=== PATIENT | male | born 1995 | race Caucasian/White ===

== ENCOUNTER 2016-09-10 06:14 | Emergency (ER) | payer OTHER ==
[2016-09-10 06:29] VITALS: BP 149/60
[2016-09-10] MEDS ORDERED: Amoxicillin 500 MG Cap PO ONE (06:36)
--- NOTE | 2016-09-10 06:42 | EDM.PDOC ---
ED HPI GENERAL MEDICAL PROBLEM - General Chief Complaint: ENT Problem Stated Complaint: FEVER, SORE THROAT Time Seen by Provider: 09/10/16 06:33 - History of Present Illness INITIAL COMMENTS - FREE TEXT/NARRATIVE: recent sore throat and fever . Throat Pain Score (Numeric/FACES): 8 - Related Data Allergies Allergy/AdvReac Type Severity Reaction Status Date / Time No Known Allergies Allergy Verified 09/10/16 06:29 Home Meds: Home Meds . [No Known Home Meds] 09/10/16 [History] ED ROS ENT - Review of Systems Review Of Systems: See Below Constitutional: Reports: Other (pain with swallowing. pain with talking) ED EXAM, ENT - Physical Exam Exam: See Below Text/Narrative:: alert neck suuple lungs CTA speech normal posterior pharynx/uvula red and inflamed. Course - Vital Signs Last Recorded V/S: Last Vital Signs Temp 96.6 F 09/10/16 06:19 Pulse 61 09/10/16 06:19 Resp 14 09/10/16 06:19 BP 149/60 H 09/10/16 06:19 Pulse Ox 95 09/10/16 06:19 - Orders/Labs/Meds Orders: Active Orders 24 hr Category Date Time Status STREP SCRN A RAPID W CULT CONF [RM] Stat Lab 09/10/16 06:27 Ordered Meds: Medications Discontinued Medications Generic Name Dose Route Start Last Admin Trade Name Frecaprice PRN Reason Stop Dose Admin Amoxicillin 500 mg 09/10/16 06:36 Amoxil PO 09/10/16 06:37 ONETIME ONE Departure - Departure Time of Disposition: 06:41 Disposition: Eloped 07 Condition: good Clinical Impression: Uvulitis, Pharyngitis - Discharge Information Forms: ED Department Discharge Additional Instructions: off work unti Stur amoxil 500 mg tid x ten days percocet 10/325 q4 hr prn #16 advised re habit forming, sedating and constipating recheck as needed - My Orders Last 24 Hours: My Active Orders 09/10/16 06:27 STREP SCRN A RAPID W CULT CONF [RM] Stat - Assessment/Plan Last 24 Hours: My Active Orders 09/10/16 06:27 STREP SCRN A RAPID W CULT CONF [RM] Stat
== END 2016-09-10 06:46 | disposition home or self-care (01) ==
LOC: MW.ED 06:14
DX: K12.2 Cellulitis and abscess of mouth (principal); J02.9 Acute pharyngitis, unspecified
CPT/HCPCS: 87880; 99283; A9270

== ENCOUNTER 2016-09-23 16:20 | Observation (INO) | payer OTHER ==
[2016-09-23] MEDS ORDERED: Sodium Chloride 0.9% 10 ML Syringe FLUSH PRN (16:36)
[2016-09-23] MEDS ORDERED: Sodium Chloride 0.9% 2.5 ML Syringe FLUSH PRN (16:36)
[2016-09-23] MEDS ORDERED: Ampicillin/Sulbactam Na 3 GM in Sodium Chloride 0.9% 100 ML IV ONE (16:36)
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
[2016-09-23] MEDS ORDERED: Sodium Chloride 0.9% 1,000 ML IV SCH (16:45)
[2016-09-23 17:23] LABS: CHLORIDE,CL 106 mmol/L (98-110); SODIUM,NA 141 mmol/L (136-146)
[2016-09-23] MEDS ORDERED: oxyCODONE 5 MG Tab PO PRN (17:33)
[2016-09-23] MEDS ORDERED: Acetaminophen 325 MG Tab PO PRN (17:33)
[2016-09-23] MEDS ORDERED: metroNIDAZOLE/Normal Saline 500 MG in Premix Bag 1 BAG IV SCH (18:00)
[2016-09-23] MEDS: Piperacillin/Tazobactam 4.5 GM in Sodium Chloride 0.9% 100 ML IV SCH (19:20)
[2016-09-23] MEDS: Sodium Chloride 0.9% 1,000 ML IV SCH (19:26)
[2016-09-23] MEDS: metroNIDAZOLE/Normal Saline 500 MG in Premix Bag 1 BAG IV SCH (20:27)
[2016-09-24] MEDS: Piperacillin/Tazobactam 4.5 GM in Sodium Chloride 0.9% 100 ML IV SCH ×3 (00:03→12:09)
[2016-09-24] MEDS: metroNIDAZOLE/Normal Saline 500 MG in Premix Bag 1 BAG IV SCH ×3 (01:18→13:07)
[2016-09-24 05:12] LABS: CHLORIDE,CL 109 mmol/L (98-110); SODIUM,NA 140 mmol/L (136-146)
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
[2016-09-24] MEDS: Sodium Chloride 0.9% 1,000 ML IV SCH (08:34)
[2016-09-24] MEDS ORDERED: Nicotine 14 MG/24 Hr Patch TRDERM SCH (09:00)
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
[2016-09-24 15:59] VITALS: BP 109/57
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
== END 2016-09-24 17:30 | disposition home or self-care (01) ==
LOC: MW.ED 16:20 → MW.MS 17:33
PROVIDERS: ADMIT Internal Medicine; ATTEND Internal Medicine
DX: L03.011 Cellulitis of right finger (principal); S61.451D Open bite of right hand, subsequent encounter; W50.3XXD Accidental bite by another person, subsequent encounter; K58.9 Irritable bowel syndrome, unspecified; Z90.89 Acquired absence of other organs
CPT/HCPCS: 36415; 73120; 80048; 80053; 85025; 87040; 96361; 96365; 99284; A9270; J0295; J2543; J7030; J7040; 96366; 96367; 99285; G0378

== ENCOUNTER 2018-11-17 10:41 | Observation (INO) | payer OTHER ==
[2018-11-17] MEDS ORDERED: Sodium Chloride 0.9% 2.5 ML Syringe FLUSH PRN (10:54)
[2018-11-17] MEDS ORDERED: Sodium Chloride 0.9% 10 ML Syringe FLUSH PRN (10:54)
[2018-11-17] MEDS ORDERED: Sodium Chloride 0.9% 1,000 ML IV ONE ×2 (10:54→12:40)
--- NOTE | 2018-11-17 10:59 | EDM.PDOC ---
ED HPI GENERAL MEDICAL PROBLEM - General Chief Complaint: Headache Stated Complaint: HEADACHE BODY ACHES CHILLS Time Seen by Provider: 11/17/18 10:56 - History of Present Illness INITIAL COMMENTS - FREE TEXT/NARRATIVE: 23 y/o male here for nausea, vomiting, fevers and body aches. States that he started feeling warm with chills last night. Body aches. Some nausea and vomiting x 1. States his whole body hurts. Sensitive to light. States he is up to date with immunizations. No cough, chest pain, dyspnea, abdominal pain, dysuria. Endorses Diarrhea for past few days. No blood in stool. Has been taking pedialyte. Has tried tylenol/ibuprofen with minimal improvement. Denies illicit drug use. He last drank over the weekend approximately 8 beers. no history of withdrawal seizures. headache Pain Score (Numeric/FACES): 9 bodyaches Pain Score (Numeric/FACES): 9 - Related Data Allergies Allergy/AdvReac Type Severity Reaction Status Date / Time No Known Allergies Allergy Verified 11/17/18 16:09 Home Meds: Home Meds . [No Known Home Meds] 02/16/18 [History] Past Medical History - Past Health History Medical/Surgical History: Denies Medical/Surgical History HEENT History: Reports: None Cardiovascular History: Reports: None Respiratory History: Reports: None Gastrointestinal History: Reports: Irritable Bowel Syndrome Genitourinary History: Reports: None Musculoskeletal History: Reports: Other (See Below) Other Musculoskeletal History: Fracture "both shoulders," both wrists Neurological History: Reports: None Psychiatric History: Reports: None Endocrine/Metabolic History: Reports: None Hematologic History: Reports: None Immunologic History: Reports: None Oncologic (Cancer) History: Reports: None Dermatologic History: Reports: None - Infectious Disease History Infectious Disease History: Reports: None - Past Surgical History Head Surgeries/Procedures: Reports: None HEENT Surgical History: Reports: Tonsillectomy Cardiovascular Surgical History: Reports: None Respiratory Surgical History: Reports: None GI Surgical History: Reports: None Male Surgical History: Reports: None Endocrine Surgical History: Reports: None Neurological Surgical History: Reports: None Musculoskeletal Surgical History: Reports: None Oncologic Surgical History: Reports: None Dermatological Surgical History: Reports: None Social & Family History - Family History Family Medical History: Noncontributory Cardiac: Reports: Hypertension, [place] Neurological: Reports: CVA Other Neurological Family History: father Endocrine/Metabolic: Reports: Diabetes, type II - Tobacco Use Smoking Status *Q: Never Smoker Second Hand Smoke Exposure: No - Caffeine Use Caffeine Use: Reports: Coffee Caffeine Use Comment: 1 daily - Recreational Drug Use Recreational Drug Use: No - Living Situation & Occupation Living situation: Reports: Single Occupation: Employed ED ROS GENERAL - Review of Systems Review Of Systems: ROS reveals no pertinent complaints other than HPI. ED EXAM, GI/ABD - Physical Exam Exam: See Below General Appearance: Alert, Anxious Respiratory/Chest: No Respiratory Distress, Lungs Clear Cardiovascular: Normal Peripheral Pulses, Regular Rate, Rhythm GI/Abdominal Exam: Normal Bowel Sounds, Soft, Non-Tender, No Distention Back Exam: Normal Inspection. No: CVA Tenderness (L), CVA Tenderness (R) Extremities: Normal Inspection, No Pedal Edema Neurological: Alert, Oriented, CN II-XII Intact Skin Exam: Warm, No Rash Course - Vital Signs Text/Narrative:: LP performed by Dr. Crenshaw. Studies sent for analysis. Started patient on ceftriaxone and acyclovir IV due to suspected viral meningitis. Discussed case with Dr. Deleon who has accepted the patient. Last Recorded V/S: Last Vital Signs Temp 38.0 C 11/17/18 20:43 Pulse 68 11/17/18 19:19 Resp 18 11/17/18 19:19 BP 138/69 11/17/18 19:19 Pulse Ox 97 11/17/18 19:19 - Orders/Labs/Meds Orders: Active Orders 24 hr Category Date Time Status Admission Status [Patient Status] [ADT] Stat ADT 11/17/18 14:17 Active CULTURE BLOOD [BC] Stat Lab 11/17/18 11:08 Received CULTURE BLOOD [BC] Stat Lab 11/17/18 14:13 Received CULTURE CSF + SMEAR [RM] Stat Lab 11/17/18 13:15 Results CULTURE FUNGUS [MREF] Stat Lab 11/17/18 13:15 Received CULTURE STREP A CONFIRMATION [RM] Stat Lab 11/17/18 11:05 Results STREP SCRN A RAPID W CULT CONF [RM] Stat Lab 11/17/18 11:05 Results Sodium Chloride 0.9% [Saline Flush] Med 11/17/18 10:54 Active 10 ml FLUSH ASDIRECTED PRN Sodium Chloride 0.9% [Saline Flush] Med 11/17/18 10:54 Active 2.5 ml FLUSH ASDIRECTED PRN Blood Culture x2 Reflex Set [OM.PC] Stat Ot 11/17/18 14:05 Ordered Saline Lock Insert [OM.PC] Stat Ot 11/17/18 10:54 Ordered Medication Orders Acetaminophen (Tylenol) 650 mg PO Q4H PRN PRN Reason: Pain (Mild 1-3)/fever Last Admin: 11/17/18 18:56 Dose: 650 mg Sodium Chloride (Normal Saline) 1,000 mls @ 150 mls/hr IV Q7H [facility] Last Admin: 11/17/18 16:48 Dose: 150 mls/hr Ceftriaxone Sodium/Dextrose 2 (gm/ Premix) 50 mls @ 100 mls/hr IV Q12H [facility] Acyclovir 800 mg/ Sodium (Chloride) 166 mls @ 166 mls/hr IV Q8H [facility] Last Admin: 11/17/18 20:45 Dose: 166 mls/hr Vancomycin HCl 1.25 gm/ Sodium (Chloride) 250 mls @ 166.667 mls/hr IV Q8H [facility] Last Admin: 11/17/18 17:17 Dose: 166.667 mls/hr Morphine Sulfate (Morphine) 3 mg IVPUSH Q2H PRN PRN Reason: Pain (severe 7-10) Last Admin: 11/17/18 19:48 Dose: 3 mg Admin: 11/17/18 17:40 Dose: 3 mg Ondansetron HCl (Zofran) 4 mg IVPUSH Q4H PRN PRN Reason: Nausea Last Admin: 11/17/18 19:47 Dose: 4 mg Promethazine HCl (Phenergan) 25 mg PO Q6H PRN PRN Reason: Nausea/Vomiting Sodium Chloride (Saline Flush) 10 ml FLUSH ASDIRECTED PRN PRN Reason: Keep Vein Open Last Admin: 11/17/18 11:01 Dose: 10 ml Sodium Chloride (Saline Flush) 2.5 ml FLUSH ASDIRECTED PRN PRN Reason: Keep Vein Open Last Admin: 11/17/18 11:01 Dose: 2.5 ml Vancomycin HCl (Pharmacy To Dose - Vancomycin) 1 dose .XX ASDIRECTED [facility] Labs: Laboratory Tests 07/25/19 07/25/19 07/25/19 Range/Units 11:00 11:00 11:00 WBC 6.62 (4.0-11.0) K/uL RBC 5.14 (4.50-5.90) M/uL Hgb 15.7 (13.0-17.0) g/dL Hct 46.7 (38.0-50.0) % MCV 90.9 (80.0-98.0) fL MCH 30.5 (27.0-32.0) pg MCHC 33.6 (31.0-37.0) g/dL RDW Std Deviation 43.2 (28.0-62.0) fl RDW Coeff of Kristofer 13 (11.0-15.0) % Plt Count 150 (150-400) K/uL MPV 9.90 (7.40-12.00) fL Neut % (Auto) 65.0 (48.0-80.0) % Lymph % (Auto) 26.0 (16.0-40.0) % [place] % (Auto) 8.5 (0.0-15.0) % Eos % (Auto) 0.3 (0.0-7.0) % Baso % (Auto) 0.2 (0.0-1.5) % Neut # (Auto) 4.3 (1.4-5.7) K/uL Lymph # (Auto) 1.7 (0.6-2.4) K/uL [place] # (Auto) 0.6 (0.0-0.8) K/uL Eos # (Auto) 0.0 (0.0-0.7) K/uL Baso # (Auto) 0.0 (0.0-0.1) K/uL Nucleated RBC % 0.0 /100WBC Nucleated RBCs # 0 K/uL Sodium 138 (136-148) mmol/L Potassium 3.7 (3.5-5.1) mmol/L Chloride 102 (98-107) mmol/L Carbon Dioxide 24.1 (21.0-32.0) mmol/L BUN 12 (7.0-18.0) mg/dL Creatinine 1.3 (0.8-1.3) mg/dL Est Cr Clr Drug Dosing 93.32 mL/min Estimated GFR (MDRD) > 60.0 ml/min Glucose 94 (74-106) mg/dL Calcium 9.1 (8.5-10.1) mg/dL Total Bilirubin 0.8 (0.2-1.0) mg/dL AST 14 L (15-37) IU/L ALT 16 (14-63) IU/L Alkaline Phosphatase 61 (46-116) U/L Total Protein 7.8 (6.4-8.2) g/dL Albumin 4.4 (3.4-5.0) g/dL Globulin 3.4 (2.6-4.0) g/dL Albumin/Globulin Ratio 1.3 (0.9-1.6) TSH 3rd Generation 0.60 (0.36-3.74) uIU/mL Urine Color Urine Appearance Urine pH (5.0-8.0) Ur Specific [place] (1.001-1.035) Urine Protein (NEGATIVE) mg/dL Urine Glucose (UA) (NEGATIVE) mg/dL Urine Ketones (NEGATIVE) mg/dL Urine Occult Blood (NEGATIVE) Urine Nitrite (NEGATIVE) Urine Bilirubin (NEGATIVE) Urine Urobilinogen (<2.0) EU/dL Ur Leukocyte Esterase (NEGATIVE) CSF Appearance CSF Color CSF WBC (0-0.005) K/uL CSF RBC (0.0-0.0) M/uL CSF Mononuclear Cells % CSF Polymorphonuclear % CSF Glucose (40-70) mg/dL CSF Total Protein (15-45) mg/dL Urine Opiates Screen (NEGATIVE) Ur Oxycodone Screen (NEGATIVE) Urine Methadone Screen (NEGATIVE) Ur Barbiturates Screen (NEGATIVE) Ur Phencyclidine Scrn (NEGATIVE) Ur Amphetamine Screen (NEGATIVE) U Methamphetamines Scrn (NEGATIVE) U Benzodiazepines Scrn (NEGATIVE) U Cocaine Metab Screen (NEGATIVE) U Marijuana (THC) Screen (NEGATIVE) Ethyl Alcohol < 3.0 mg/dL HIV 1&2 Ag/Ab, 4th Gen 0.3 (<1.0) INDEX 11/17/18 11/17/18 11/17/18 Range/Units 11:05 11:05 13:15 WBC (4.0-11.0) K/uL RBC (4.50-5.90) M/uL Hgb (13.0-17.0) g/dL Hct (38.0-50.0) % MCV (80.0-98.0) fL MCH (27.0-32.0) pg MCHC (31.0-37.0) g/dL RDW Std Deviation (28.0-62.0) fl RDW Coeff of Kristofer (11.0-15.0) % Plt Count (150-400) K/uL MPV (7.40-12.00) fL Neut % (Auto) (48.0-80.0) % Lymph % (Auto) (16.0-40.0) % [place] % (Auto) (0.0-15.0) % Eos % (Auto) (0.0-7.0) % Baso % (Auto) (0.0-1.5) % Neut # (Auto) (1.4-5.7) K/uL Lymph # (Auto) (0.6-2.4) K/uL [place] # (Auto) (0.0-0.8) K/uL Eos # (Auto) (0.0-0.7) K/uL Baso # (Auto) (0.0-0.1) K/uL Nucleated RBC % /100WBC Nucleated RBCs # K/uL Sodium (136-148) mmol/L Potassium (3.5-5.1) mmol/L Chloride (98-107) mmol/L Carbon Dioxide (21.0-32.0) mmol/L BUN (7.0-18.0) mg/dL Creatinine (0.8-1.3) mg/dL Est Cr Clr Drug Dosing mL/min Estimated GFR (MDRD) ml/min Glucose (74-106) mg/dL Calcium (8.5-10.1) mg/dL Total Bilirubin (0.2-1.0) mg/dL AST (15-37) IU/L ALT (14-63) IU/L Alkaline Phosphatase (46-116) U/L Total Protein (6.4-8.2) g/dL Albumin (3.4-5.0) g/dL Globulin (2.6-4.0) g/dL Albumin/Globulin Ratio (0.9-1.6) TSH 3rd Generation (0.36-3.74) uIU/mL Urine Color YELLOW Urine Appearance CLEAR Urine pH 7.0 (5.0-8.0) Ur Specific [place] 1.020 (1.001-1.035) Urine Protein NEGATIVE (NEGATIVE) mg/dL Urine Glucose (UA) NEGATIVE (NEGATIVE) mg/dL Urine Ketones 40 H (NEGATIVE) mg/dL Urine Occult Blood NEGATIVE (NEGATIVE) Urine Nitrite NEGATIVE (NEGATIVE) Urine Bilirubin NEGATIVE (NEGATIVE) Urine Urobilinogen 0.2 (<2.0) EU/dL Ur Leukocyte Esterase NEGATIVE (NEGATIVE) CSF Appearance CLEAR CSF Color COLORLESS CSF WBC 0.097 H (0-0.005) K/uL CSF RBC 0.000 (0.0-0.0) M/uL CSF Mononuclear Cells 93.8 % CSF Polymorphonuclear 6.2 % CSF Glucose (40-70) mg/dL CSF Total Protein (15-45) mg/dL Urine Opiates Screen NEGATIVE (NEGATIVE) Ur Oxycodone Screen NEGATIVE (NEGATIVE) Urine Methadone Screen NEGATIVE (NEGATIVE) Ur Barbiturates Screen NEGATIVE (NEGATIVE) Ur Phencyclidine Scrn NEGATIVE (NEGATIVE) Ur Amphetamine Screen NEGATIVE (NEGATIVE) U Methamphetamines Scrn NEGATIVE (NEGATIVE) U Benzodiazepines Scrn NEGATIVE (NEGATIVE) U Cocaine Metab Screen NEGATIVE (NEGATIVE) U Marijuana (THC) Screen NEGATIVE (NEGATIVE) Ethyl Alcohol mg/dL HIV 1&2 Ag/Ab, 4th Gen (<1.0) INDEX 11/17/18 Range/Units 13:15 WBC (4.0-11.0) K/uL RBC (4.50-5.90) M/uL Hgb (13.0-17.0) g/dL Hct (38.0-50.0) % MCV (80.0-98.0) fL MCH (27.0-32.0) pg MCHC (31.0-37.0) g/dL RDW Std Deviation (28.0-62.0) fl RDW Coeff of Kristofer (11.0-15.0) % Plt Count (150-400) K/uL MPV (7.40-12.00) fL Neut % (Auto) (48.0-80.0) % Lymph % (Auto) (16.0-40.0) % [place] % (Auto) (0.0-15.0) % Eos % (Auto) (0.0-7.0) % Baso % (Auto) (0.0-1.5) % Neut # (Auto) (1.4-5.7) K/uL Lymph # (Auto) (0.6-2.4) K/uL [place] # (Auto) (0.0-0.8) K/uL Eos # (Auto) (0.0-0.7) K/uL Baso # (Auto) (0.0-0.1) K/uL Nucleated RBC % /100WBC Nucleated RBCs # K/uL Sodium (136-148) mmol/L Potassium (3.5-5.1) mmol/L Chloride (98-107) mmol/L Carbon Dioxide (21.0-32.0) mmol/L BUN (7.0-18.0) mg/dL Creatinine (0.8-1.3) mg/dL Est Cr Clr Drug Dosing mL/min Estimated GFR (MDRD) ml/min Glucose (74-106) mg/dL Calcium (8.5-10.1) mg/dL Total Bilirubin (0.2-1.0) mg/dL AST (15-37) IU/L ALT (14-63) IU/L Alkaline Phosphatase (46-116) U/L Total Protein (6.4-8.2) g/dL Albumin (3.4-5.0) g/dL Globulin (2.6-4.0) g/dL Albumin/Globulin Ratio (0.9-1.6) TSH 3rd Generation (0.36-3.74) uIU/mL Urine Color Urine Appearance Urine pH (5.0-8.0) Ur Specific [place] (1.001-1.035) Urine Protein (NEGATIVE) mg/dL Urine Glucose (UA) (NEGATIVE) mg/dL Urine Ketones (NEGATIVE) mg/dL Urine Occult Blood (NEGATIVE) Urine Nitrite (NEGATIVE) Urine Bilirubin (NEGATIVE) Urine Urobilinogen (<2.0) EU/dL Ur Leukocyte Esterase (NEGATIVE) CSF Appearance CSF Color CSF WBC (0-0.005) K/uL CSF RBC (0.0-0.0) M/uL CSF Mononuclear Cells % CSF Polymorphonuclear % CSF Glucose 52.0 (40-70) mg/dL CSF Total Protein 87 H (15-45) mg/dL Urine Opiates Screen (NEGATIVE) Ur Oxycodone Screen (NEGATIVE) Urine Methadone Screen (NEGATIVE) Ur Barbiturates Screen (NEGATIVE) Ur Phencyclidine Scrn (NEGATIVE) Ur Amphetamine Screen (NEGATIVE) U Methamphetamines Scrn (NEGATIVE) U Benzodiazepines Scrn (NEGATIVE) U Cocaine Metab Screen (NEGATIVE) U Marijuana (THC) Screen (NEGATIVE) Ethyl Alcohol mg/dL HIV 1&2 Ag/Ab, 4th Gen (<1.0) INDEX Meds: Medications Generic Name Dose Route Start Last Admin Trade Name Freq PRN Reason Stop Dose Admin Acetaminophen 650 mg 11/17/18 15:19 11/17/18 18:56 Tylenol PO 650 mg Q4H PRN Administration Pain (Mild 1-3)/fever Sodium Chloride 1,000 mls @ 150 mls/hr 11/17/18 15:30 11/17/18 16:48 Normal Saline IV 150 mls/hr Q7H [facility] Administration Ceftriaxone Sodium/Dextrose 2 50 mls @ 100 mls/hr 11/18/18 01:00 gm/ Premix IV Q12H [facility] Acyclovir 800 mg/ Sodium 166 mls @ 166 mls/hr 11/17/18 21:30 11/17/18 20:45 Chloride IV 166 mls/hr Q8H [facility] Administration Vancomycin HCl 1.25 gm/ Sodium 250 mls @ 166.667 mls/hr 11/17/18 16:30 17:17 Chloride IV 166.667 mls/hr Q8H [facility] Administration Morphine Sulfate 3 mg 11/17/18 15:19 11/17/18 19:48 Morphine IVPUSH 3 mg Q2H PRN Administration Pain (severe 7-10) Ondansetron HCl 4 mg 11/17/18 15:21 11/17/18 19:47 Zofran IVPUSH 4 mg Q4H PRN Administration Nausea Promethazine HCl 25 mg 11/17/18 20:24 Phenergan PO Q6H PRN Nausea/Vomiting Sodium Chloride 10 ml 11/17/18 10:54 11/17/18 11:01 Saline Flush FLUSH 10 ml ASDIRECTED PRN Administration Keep Vein Open Sodium Chloride 2.5 ml 11/17/18 10:54 11/17/18 11:01 Saline Flush FLUSH 2.5 ml ASDIRECTED PRN Administration Keep Vein Open Vancomycin HCl 1 dose 11/17/18 15:30 Pharmacy To Dose - Vancomycin .XX ASDIRECTED [facility] Discontinued Medications Generic Name Dose Route Start Last Admin Trade Name Freq PRRuel Reason Stop Dose Admin Acetaminophen 1,000 mg 11/17/18 11:22 11/17/18 11:33 Tylenol PO 11/17/18 11:23 Not Given NOW ONE Acetaminophen 1,000 mg 11/17/18 11:31 11/17/18 11:38 Tylenol Extra Strength PO 11/17/18 11:32 1,000 mg ONETIME ONE Administration Acetaminophen 650 mg 11/17/18 20:24 11/17/18 20:43 Tylenol PO 11/17/18 20:25 650 mg NOW ONE Administration Hydromorphone HCl 1 mg 11/17/18 13:27 11/17/18 13:34 Dilaudid IVPUSH 11/17/18 13:28 1 mg ONETIME ONE Administration Sodium Chloride 1,000 mls @ 999 mls/hr 11/17/18 10:54 11/17/18 11:01 Normal Saline IV 11/17/18 11:54 999 mls/hr STAT ONE Administration Sodium Chloride 1,000 mls @ 999 mls/hr 11/17/18 12:40 11/17/18 12:58 Normal Saline IV 11/17/18 13:40 999 mls/hr STAT ONE Administration Ceftriaxone Sodium/Dextrose 2 50 mls @ 100 mls/hr 11/17/18 12:50 11/17/18 12: 58 gm/ Premix IV 11/17/18 13:19 100 mls/hr ONETIME ONE Administration Acyclovir 800 mg/ Sodium 66 mls @ 50 mls/hr 11/17/18 13:01 11/17/18 13:35 Chloride IV 11/17/18 14:20 Not Given ONETIME ONE Acyclovir 800 mg/ Sodium 166 mls @ 166 mls/hr 11/17/18 13:15 11/17/18 13:32 Chloride IV 11/17/18 14:14 166 mls/hr ONETIME ONE Administration Ketorolac Tromethamine 60 mg 11/17/18 12:13 11/17/18 12:35 Toradol IM 11/17/18 12:14 Not Given ONETIME ONE Ketorolac Tromethamine 30 mg 11/17/18 12:24 11/17/18 12:33 Toradol IVPUSH 11/17/18 12:25 30 mg ONETIME ONE Administration Ondansetron HCl 4 mg 11/17/18 13:27 11/17/18 13:34 Zofran IVPUSH 11/17/18 13:28 4 mg ONETIME ONE Administration Departure - Departure Time of Disposition: 14:00 Disposition: Refer to Observation Clinical Impression: Meningitis - Discharge Information *PRESCRIPTION DRUG MONITORING PROGRAM REVIEWED*: Not Applicable *COPY OF PRESCRIPTION DRUG MONITORING REPORT IN PATIENT JASON: Not Applicable - My Orders Last 24 Hours: My Active Orders 11/17/18 10:54 Sodium Chloride 0.9% [Saline Flush] 10 ml FLUSH ASDIRECTED PRN Sodium Chloride 0.9% [Saline Flush] 2.5 ml FLUSH ASDIRECTED PRN Saline Lock Insert [OM.PC] Stat 11/17/18 11:05 CULTURE STREP A CONFIRMATION [RM] Stat STREP SCRN A RAPID W CULT CONF [RM] Stat 11/17/18 11:08 CULTURE BLOOD [BC] Stat 11/17/18 13:15 CULTURE CSF + SMEAR [RM] Stat CULTURE FUNGUS [MREF] Stat 11/17/18 14:05 Blood Culture x2 Reflex Set [OM.PC] Stat 11/17/18 14:13 CULTURE BLOOD [BC] Stat 11/17/18 14:17 Admission Status [Patient Status] [ADT] Stat - Assessment/Plan Last 24 Hours: My Active Orders 11/17/18 10:54 Sodium Chloride 0.9% [Saline Flush] 10 ml FLUSH ASDIRECTED PRN Sodium Chloride 0.9% [Saline Flush] 2.5 ml FLUSH ASDIRECTED PRN Saline Lock Insert [OM.PC] Stat 11/17/18 11:05 CULTURE STREP A CONFIRMATION [RM] Stat STREP SCRN A RAPID W CULT CONF [RM] Stat 11/17/18 11:08 CULTURE BLOOD [BC] Stat 11/17/18 13:15 CULTURE CSF + SMEAR [RM] Stat CULTURE FUNGUS [MREF] Stat 11/17/18 14:05 Blood Culture x2 Reflex Set [OM.PC] Stat 11/17/18 14:13 CULTURE BLOOD [BC] Stat 11/17/18 14:17 Admission Status [Patient Status] [ADT] Stat
[2018-11-17] MEDS ORDERED: Acetaminophen 325 MG Tab PO ONE ×2 (11:22→20:24)
[2018-11-17] MEDS ORDERED: Acetaminophen 500 MG Tab PO ONE (11:31)
[2018-11-17 11:53] LABS: CHLORIDE,CL 102 mmol/L (98-107); SODIUM,NA 138 mmol/L (136-148)
[2018-11-17] MEDS ORDERED: Ketorolac 60 MG/2 ML SDV IM ONE (12:13)
[2018-11-17] MEDS ORDERED: Ketorolac 30 MG/ML SDV IVPUSH ONE (12:24)
[2018-11-17] MEDS ORDERED: cefTRIAXone 2 GM in Premix Bag 1 BAG IV ONE (12:50)
[2018-11-17] MEDS ORDERED: Acyclovir 500 MG/10 ML SDV IV SCH ×2 (13:00→21:30)
[2018-11-17] MEDS ORDERED: Acyclovir 500 MG/10 ML SDV IV ONE (13:00)
[2018-11-17] MEDS ORDERED: ACYCLOVIR IV ONE ×3 (13:01→13:15)
[2018-11-17] MEDS ORDERED: SODIUM CHLORIDE 0.9% IV ONE ×3 (13:01→13:15)
--- NOTE | 2018-11-17 13:25 | PCM.PRNOTE ---
- Free Text/Narrative Note: Dr. Crenshaw performed lumbar puncture. Patient consent on file. Draped and cleansed area in usual sterile manner. Lidocaine 1% injected for anesthesia. 10 CC aseptic CSF drained. Patient tolerated procedure well. No complications. CSF fluid sent for analysis.
[2018-11-17] MEDS ORDERED: Ondansetron 4 MG/2 ML SDV IVPUSH ONE (13:27)
[2018-11-17] MEDS ORDERED: HYDROmorphone 1 MG/ML Syringe IVPUSH ONE (13:27)
--- NOTE | 2018-11-17 15:15 | PCM.HP ---
<Ursula Howell M - Last Filed: 11/17/18 15:32> H&P History of Present Illness - General Date of Service: 11/17/18 Admit Problem/Dx: Admission Diagnosis/Problem Admission Diagnosis/Problem Aseptic meningitis Source of Information: Patient History Limitations: Reports: No Limitations - History of Present Illness Initial Comments - Free Text/Narative: This 23 year old male, otherwise healthy, presented to the ED today with complaints of headache, body aches, and fevers. He reports he started feeling ill a few days ago, but last night it significantly worsened. He reports neck pain with headaches that have associated light sensitivity. He reports generalized malaise and body aches, with mild nausea, vomiting and diarrhea. He reports he is up to date on vaccines, but he asked him mom regarding meningitis vaccine and she reports he never received one. He reports he has been at the [facility] a lot with many mosquito bites, no ticks that he is aware of, and no exposure to rodents. He denies overt rashes or lesions on his skin any were. Feels some blistering/sores on his lips. No strong history of herpes simplex. Denies history of HIV and no recent unprotected sex and no history of genital herpes and no current lesion in genitals. He denies recreational drug use, and specifically no IV drug use. He denies chest pain or cough. No focal neurologic deficits. He reports when he started feeling sick a few days ago he started taking a few pills of Amoxicillin that he had left over from an illness. Last evening he started taking Motrin and Tylenol to help with pain, with no relief. In the ED labowrk essential WNL. CSF fluid clear, WBC 0.097, glucose 52, protein 87. Gram stain reveals no organism, culture pending. Strep negative, Influenza negative. BC obtained and pending. UA negative Tox screen negative. He was treated with Acyclovir, Rocephin and IVFs. He was also given Tylenol and Dilaudid for pain. He will be admitted with suspected viral meningitis. headache Pain Score (Numeric/FACES): 9 bodyaches Pain Score (Numeric/FACES): 9 - Related Data Allergies/Adverse Reactions: Allergies Allergy/AdvReac Type Severity Reaction Status Date / Time No Known Allergies Allergy Verified 11/17/18 16:09 Home Medications: Home Meds . [No Known Home Meds] 02/16/18 [History] Past Medical History - Past Health History Medical/Surgical History: Denies Medical/Surgical History HEENT History: Reports: None Cardiovascular History: Reports: None. Denies: CAD, High Cholesterol, [place] Respiratory History: Reports: None. Denies: Asthma Gastrointestinal History: Reports: Irritable Bowel Syndrome Genitourinary History: Reports: None Musculoskeletal History: Reports: Other (See Below) Other Musculoskeletal History: Fracture "both shoulders," both wrists Neurological History: Reports: None Psychiatric History: Reports: None Endocrine/Metabolic History: Reports: None. Denies: Diabetes, Type II, Obesity/ BMI 30+ Hematologic History: Reports: None Immunologic History: Reports: None Oncologic (Cancer) History: Reports: None Dermatologic History: Reports: None - Infectious Disease History Infectious Disease History: Reports: None - Past Surgical History Head Surgeries/Procedures: Reports: None HEENT Surgical History: Reports: Tonsillectomy Cardiovascular Surgical History: Reports: None Respiratory Surgical History: Reports: None GI Surgical History: Reports: None Male Surgical History: Reports: None Endocrine Surgical History: Reports: None Neurological Surgical History: Reports: None Musculoskeletal Surgical History: Reports: None Oncologic Surgical History: Reports: None Dermatological Surgical History: Reports: None Social & Family History - Family History Family Medical History: Noncontributory Cardiac: Reports: Hypertension, [place] Neurological: Reports: CVA Other Neurological Family History: father Endocrine/Metabolic: Reports: Diabetes, type II - Tobacco Use Smoking Status *Q: Never Smoker Second Hand Smoke Exposure: No - Caffeine Use Caffeine Use: Reports: Coffee Caffeine Use Comment: 1 daily - Recreational Drug Use Recreational Drug Use: No - Living Situation & Occupation Living situation: Reports: Single Occupation: Employed H&P Review of Systems - Review of Systems: Review Of Systems: See Below General: Reports: Fever, Chills, Malaise, Weakness HEENT: Reports: Headaches, Visual Changes (photophobia). Denies: Sinus Congestion, Sore Throat, Vertigo Pulmonary: Reports: No Symptoms. Denies: Shortness of Breath, Cough, Sputum Cardiovascular: Denies: No Symptoms, Chest Pain, Edema Gastrointestinal: Reports: Diarrhea, Nausea, Vomiting. Denies: Abdominal Pain Genitourinary: Reports: No Symptoms. Denies: Dysuria, Frequency, Burning Skin: Reports: No Symptoms. Denies: Rash, Erythema, Wound Psychiatric: Reports: No Symptoms Neurological: Reports: No Symptoms. Denies: Confusion, Numbness, Paresthesia, Weakness Hematologic/Lymphatic: Reports: No Symptoms Immunologic: Reports: No Symptoms Exam - Exam Exam: See Below - Vital Signs Vital Signs: Last Vital Signs Temp 99.4 F 11/17/18 13:39 Pulse 101 H 11/17/18 14:48 Resp 18 11/17/18 14:48 BP 135/62 11/17/18 14:48 Pulse Ox 98 11/17/18 14:48 Weight: 79.379 kg - Exam General: Alert, Oriented, Cooperative, Other (lights off in room, pillow case over eyes, flushed cheeks and lying flat on his back.) HEENT: Conjunctiva Clear, Mucosa Moist & [place], Posterior Pharynx Clear, Other ( slight blistering sores to oral labia crease R side) Neck: Other (nuchal rigidity noted). No: Lymphadenopathy Lungs: Clear to Auscultation, Normal Respiratory Effort Cardiovascular: Regular Rate, Regular Rhythm, Normal S1, Normal S2. No: Systolic Murmur GI/Abdominal Exam: Normal Bowel Sounds, Soft, Non-Tender Extremities: Normal Inspection, Normal Range of Motion, Non-Tender, No Pedal Edema Skin: Other (flushed cheeks and neck). No: Rash Neuro Extensive - Mental Status: Alert, Oriented x3 Neuro Extensive - Motor, Sensory, Reflexes: CN II-XII Intact Psychiatric: Alert, Normal Affect, Normal Mood - Patient Data Lab Results Last 24 hrs: Laboratory Results - last 24 hr 11/17/18 11/17/18 11/17/18 Range/Units 11:00 11:00 11:05 WBC 6.62 (4.0-11.0) K/uL RBC 5.14 (4.50-5.90) M/uL Hgb 15.7 (13.0-17.0) g/dL Hct 46.7 (38.0-50.0) % MCV 90.9 (80.0-98.0) fL MCH 30.5 (27.0-32.0) pg MCHC 33.6 (31.0-37.0) g/dL RDW Std Deviation 43.2 (28.0-62.0) fl RDW Coeff of Kristofer 13 (11.0-15.0) % Plt Count 150 (150-400) K/uL MPV 9.90 (7.40-12.00) fL Neut % (Auto) 65.0 (48.0-80.0) % Lymph % (Auto) 26.0 (16.0-40.0) % [place] % (Auto) 8.5 (0.0-15.0) % Eos % (Auto) 0.3 (0.0-7.0) % Baso % (Auto) 0.2 (0.0-1.5) % Neut # (Auto) 4.3 (1.4-5.7) K/uL Lymph # (Auto) 1.7 (0.6-2.4) K/uL [place] # (Auto) 0.6 (0.0-0.8) K/uL Eos # (Auto) 0.0 (0.0-0.7) K/uL Baso # (Auto) 0.0 (0.0-0.1) K/uL Nucleated RBC % 0.0 /100WBC Nucleated RBCs # 0 K/uL Sodium 138 (136-148) mmol/L Potassium 3.7 (3.5-5.1) mmol/L Chloride 102 (98-107) mmol/L Carbon Dioxide 24.1 (21.0-32.0) mmol/L BUN 12 (7.0-18.0) mg/dL Creatinine 1.3 (0.8-1.3) mg/dL Est Cr Clr Drug Dosing 93.32 mL/min Estimated GFR (MDRD) > 60.0 ml/min Glucose 94 (74-106) mg/dL Calcium 9.1 (8.5-10.1) mg/dL Total Bilirubin 0.8 (0.2-1.0) mg/dL AST 14 L (15-37) IU/L ALT 16 (14-63) IU/L Alkaline Phosphatase 61 (46-116) U/L Total Protein 7.8 (6.4-8.2) g/dL Albumin 4.4 (3.4-5.0) g/dL Globulin 3.4 (2.6-4.0) g/dL Albumin/Globulin Ratio 1.3 (0.9-1.6) TSH 3rd Generation 0.60 (0.36-3.74) uIU/mL Urine Color YELLOW Urine Appearance CLEAR Urine pH 7.0 (5.0-8.0) Ur Specific [place] 1.020 (1.001-1.035) Urine Protein NEGATIVE (NEGATIVE) mg/dL Urine Glucose (UA) NEGATIVE (NEGATIVE) mg/dL Urine Ketones 40 H (NEGATIVE) mg/dL Urine Occult Blood NEGATIVE (NEGATIVE) Urine Nitrite NEGATIVE (NEGATIVE) Urine Bilirubin NEGATIVE (NEGATIVE) Urine Urobilinogen 0.2 (<2.0) EU/dL Ur Leukocyte Esterase NEGATIVE (NEGATIVE) CSF Appearance CSF Color CSF WBC (0-0.005) K/uL CSF RBC (0.0-0.0) M/uL CSF Mononuclear Cells % CSF Polymorphonuclear % CSF Glucose (40-70) mg/dL CSF Total Protein (15-45) mg/dL Urine Opiates Screen (NEGATIVE) Ur Oxycodone Screen (NEGATIVE) Urine Methadone Screen (NEGATIVE) Ur Barbiturates Screen (NEGATIVE) Ur Phencyclidine Scrn (NEGATIVE) Ur Amphetamine Screen (NEGATIVE) U Methamphetamines Scrn (NEGATIVE) U Benzodiazepines Scrn (NEGATIVE) U Cocaine Metab Screen (NEGATIVE) U Marijuana (THC) Screen (NEGATIVE) Ethyl Alcohol < 3.0 mg/dL 11/17/18 11/17/18 11/17/18 Range/Units 11:05 13:15 13:15 WBC (4.0-11.0) K/uL RBC (4.50-5.90) M/uL Hgb (13.0-17.0) g/dL Hct (38.0-50.0) % MCV (80.0-98.0) fL MCH (27.0-32.0) pg MCHC (31.0-37.0) g/dL RDW Std Deviation (28.0-62.0) fl RDW Coeff of Kristofer (11.0-15.0) % Plt Count (150-400) K/uL MPV (7.40-12.00) fL Neut % (Auto) (48.0-80.0) % Lymph % (Auto) (16.0-40.0) % [place] % (Auto) (0.0-15.0) % Eos % (Auto) (0.0-7.0) % Baso % (Auto) (0.0-1.5) % Neut # (Auto) (1.4-5.7) K/uL Lymph # (Auto) (0.6-2.4) K/uL [place] # (Auto) (0.0-0.8) K/uL Eos # (Auto) (0.0-0.7) K/uL Baso # (Auto) (0.0-0.1) K/uL Nucleated RBC % /100WBC Nucleated RBCs # K/uL Sodium (136-148) mmol/L Potassium (3.5-5.1) mmol/L Chloride (98-107) mmol/L Carbon Dioxide (21.0-32.0) mmol/L BUN (7.0-18.0) mg/dL Creatinine (0.8-1.3) mg/dL Est Cr Clr Drug Dosing mL/min Estimated GFR (MDRD) ml/min Glucose (74-106) mg/dL Calcium (8.5-10.1) mg/dL Total Bilirubin (0.2-1.0) mg/dL AST (15-37) IU/L ALT (14-63) IU/L Alkaline Phosphatase (46-116) U/L Total Protein (6.4-8.2) g/dL Albumin (3.4-5.0) g/dL Globulin (2.6-4.0) g/dL Albumin/Globulin Ratio (0.9-1.6) TSH 3rd Generation (0.36-3.74) uIU/mL Urine Color Urine Appearance Urine pH (5.0-8.0) Ur Specific [place] (1.001-1.035) Urine Protein (NEGATIVE) mg/dL Urine Glucose (UA) (NEGATIVE) mg/dL Urine Ketones (NEGATIVE) mg/dL Urine Occult Blood (NEGATIVE) Urine Nitrite (NEGATIVE) Urine Bilirubin (NEGATIVE) Urine Urobilinogen (<2.0) EU/dL Ur Leukocyte Esterase (NEGATIVE) CSF Appearance CLEAR CSF Color COLORLESS CSF WBC 0.097 H (0-0.005) K/uL CSF RBC 0.000 (0.0-0.0) M/uL CSF Mononuclear Cells 93.8 % CSF Polymorphonuclear 6.2 % CSF Glucose 52.0 (40-70) mg/dL CSF Total Protein 87 H (15-45) mg/dL Urine Opiates Screen NEGATIVE (NEGATIVE) Ur Oxycodone Screen NEGATIVE (NEGATIVE) Urine Methadone Screen NEGATIVE (NEGATIVE) Ur Barbiturates Screen NEGATIVE (NEGATIVE) Ur Phencyclidine Scrn NEGATIVE (NEGATIVE) Ur Amphetamine Screen NEGATIVE (NEGATIVE) U Methamphetamines Scrn NEGATIVE (NEGATIVE) U Benzodiazepines Scrn NEGATIVE (NEGATIVE) U Cocaine Metab Screen NEGATIVE (NEGATIVE) U Marijuana (THC) Screen NEGATIVE (NEGATIVE) Ethyl Alcohol mg/dL Result Diagrams: 11/17/18 11:00 11/17/18 11:00 Kuldip Results Last 24 hrs: Microbiology 11/17/18 13:15 Gram Stain - Preliminary Cerebral Spinal Fluid 11/17/18 11:05 Influenza Type A Antigen Screen - Final Nasopharyngeal Swab NEGATIVE INFLUENZA A VIRUS AG REFERENCE RANGE: NEGATIVE Influenza Type B Antigen Screen - Final NEGATIVE INFLUENZA B VIRUS AG REFERENCE RANGE: NEGATIVE 11/17/18 11:05 Group A Streptococcus Rapid Screen - Final Throat NEGATIVE STREP A SCREEN REFERENCE RANGE: NEGATIVE - Problem List (1) Meningitis SNOMED Code(s): 68103712 ICD Code: A87.9 - VIRAL MENINGITIS, UNSPECIFIED Status: Acute Current Visit: Yes Problem List Initiated/Reviewed/Updated: Yes Orders Last 24hrs: Active Orders 24 hr Category Date Time Status Admission Status [Patient Status] [ADT] Stat ADT 11/17/18 14:17 Active CULTURE BLOOD [BC] Stat Lab 11/17/18 11:08 Received CULTURE BLOOD [BC] Stat Lab 11/17/18 14:13 Received CULTURE CSF + SMEAR [RM] Stat Lab 11/17/18 13:15 Results CULTURE FUNGUS [MREF] Stat Lab 11/17/18 13:15 Received CULTURE STREP A CONFIRMATION [RM] Stat Lab 11/17/18 11:05 Results STREP SCRN A RAPID W CULT CONF [RM] Stat Lab 11/17/18 11:05 Results Sodium Chloride 0.9% [Saline Flush] Med 11/17/18 10:54 Active 10 ml FLUSH ASDIRECTED PRN Sodium Chloride 0.9% [Saline Flush] Med 11/17/18 10:54 Active 2.5 ml FLUSH ASDIRECTED PRN Blood Culture x2 Reflex Set [OM.PC] Stat Oth 11/17/18 14:05 Ordered Saline Lock Insert [OM.PC] Stat Oth 11/17/18 10:54 Ordered Medication Orders Sodium Chloride (Saline Flush) 10 ml FLUSH ASDIRECTED PRN PRN Reason: Keep Vein Open Last Admin: 11/17/18 11:01 Dose: 10 ml Sodium Chloride (Saline Flush) 2.5 ml FLUSH ASDIRECTED PRN PRN Reason: Keep Vein Open Last Admin: 11/17/18 11:01 Dose: 2.5 ml Assessment/Plan Comment:: This 23 year old male admitted with suspected viral meningitis 1. Viral meningitis: Will place on droplet precautions due to patient taking some antibiotics at home in the last few days. Cover with Empiric antibiotics of Rocephin and Vancomycin along with Acyclovir. HIV, HSV and West Nile studies pending. CSF cultures pending as well. West Nile could be consideration as he has been at the [facility] and has received multiple mosquito bites. Will obtain CXR to rule out pneumonia VTE prophylaxis: SCDs <Heath Deleon - Last Filed: 11/18/18 12:03> H&P History of Present Illness - General Admit Problem/Dx: Admission Diagnosis/Problem Admission Diagnosis/Problem Aseptic meningitis I have examined the patient independently of Ursula Howell CNP. I have discussed the case with her. I have reviewed and agree with the examination and plan as outlined by her. Please see orders. Exam - Vital Signs Vital Signs: Last Vital Signs Temp 36.7 C 11/18/18 11:12 Pulse 62 11/18/18 11:12 Resp 18 11/18/18 11:12 BP 120/72 11/18/18 11:12 Pulse Ox 97 11/18/18 11:12 - Patient Data Lab Results Last 24 hrs: Laboratory Results - last 24 hr 11/17/18 11/17/18 11/17/18 Range/Units 11:00 13:15 13:15 WBC (4.0-11.0) K/uL RBC (4.50-5.90) M/uL Hgb (13.0-17.0) g/dL Hct (38.0-50.0) % MCV (80.0-98.0) fL MCH (27.0-32.0) pg MCHC (31.0-37.0) g/dL RDW Std Deviation (28.0-62.0) fl RDW Coeff of Kristofer (11.0-15.0) % Plt Count (150-400) K/uL MPV (7.40-12.00) fL Neut % (Auto) (48.0-80.0) % Lymph % (Auto) (16.0-40.0) % [place] % (Auto) (0.0-15.0) % Eos % (Auto) (0.0-7.0) % Baso % (Auto) (0.0-1.5) % Neut # (Auto) (1.4-5.7) K/uL Lymph # (Auto) (0.6-2.4) K/uL [place] # (Auto) (0.0-0.8) K/uL Eos # (Auto) (0.0-0.7) K/uL Baso # (Auto) (0.0-0.1) K/uL Nucleated RBC % /100WBC Nucleated RBCs # K/uL Sodium (136-148) mmol/L Potassium (3.5-5.1) mmol/L Chloride (98-107) mmol/L Carbon Dioxide (21.0-32.0) mmol/L BUN (7.0-18.0) mg/dL Creatinine (0.8-1.3) mg/dL Est Cr Clr Drug Dosing mL/min Estimated GFR (MDRD) ml/min Glucose (74-106) mg/dL Calcium (8.5-10.1) mg/dL CSF Appearance CLEAR CSF Color COLORLESS CSF WBC 0.097 H (0-0.005) K/uL CSF RBC 0.000 (0.0-0.0) M/uL CSF Mononuclear Cells 93.8 % CSF Polymorphonuclear 6.2 % CSF Glucose 52.0 (40-70) mg/dL CSF Total Protein 87 H (15-45) mg/dL HIV 1&2 Ag/Ab, 4th Gen 0.3 (<1.0) INDEX 11/18/18 11/18/18 Range/Units 05:30 05:30 WBC 7.81 (4.0-11.0) K/uL RBC 4.58 (4.50-5.90) M/uL Hgb 13.7 (13.0-17.0) g/dL Hct 41.6 (38.0-50.0) % MCV 90.8 (80.0-98.0) fL MCH 29.9 (27.0-32.0) pg MCHC 32.9 (31.0-37.0) g/dL RDW Std Deviation 42.1 (28.0-62.0) fl RDW Coeff of Kristofer 13 (11.0-15.0) % Plt Count 144 L (150-400) K/uL MPV 10.20 (7.40-12.00) fL Neut % (Auto) 65.5 (48.0-80.0) % Lymph % (Auto) 23.3 (16.0-40.0) % [place] % (Auto) 10.8 (0.0-15.0) % Eos % (Auto) 0.1 (0.0-7.0) % Baso % (Auto) 0.3 (0.0-1.5) % Neut # (Auto) 5.1 (1.4-5.7) K/uL Lymph # (Auto) 1.8 (0.6-2.4) K/uL [place] # (Auto) 0.8 (0.0-0.8) K/uL Eos # (Auto) 0.0 (0.0-0.7) K/uL Baso # (Auto) 0.0 (0.0-0.1) K/uL Nucleated RBC % 0.0 /100WBC Nucleated RBCs # 0 K/uL Sodium 137 (136-148) mmol/L Potassium 3.7 (3.5-5.1) mmol/L Chloride 102 (98-107) mmol/L Carbon Dioxide 22.8 (21.0-32.0) mmol/L BUN 8 (7.0-18.0) mg/dL Creatinine 1.0 (0.8-1.3) mg/dL Est Cr Clr Drug Dosing 113.91 mL/min Estimated GFR (MDRD) > 60.0 ml/min Glucose 92 (74-106) mg/dL Calcium 8.2 L (8.5-10.1) mg/dL CSF Appearance CSF Color CSF WBC (0-0.005) K/uL CSF RBC (0.0-0.0) M/uL CSF Mononuclear Cells % CSF Polymorphonuclear % CSF Glucose (40-70) mg/dL CSF Total Protein (15-45) mg/dL HIV 1&2 Ag/Ab, 4th Gen (<1.0) INDEX Result Diagrams: 11/18/18 05:30 11/18/18 05:30 Kuldip Results Last 24 hrs: Microbiology 11/17/18 13:15 Gram Stain - Preliminary Cerebral Spinal Fluid CSF Culture - Preliminary NO GROWTH AFTER 1 DAY 11/17/18 11:05 Influenza Type A Antigen Screen - Final Nasopharyngeal Swab NEGATIVE INFLUENZA A VIRUS AG REFERENCE RANGE: NEGATIVE Influenza Type B Antigen Screen - Final NEGATIVE INFLUENZA B VIRUS AG REFERENCE RANGE: NEGATIVE 11/17/18 11:05 Group A Streptococcus Rapid Screen - Final Throat NEGATIVE STREP A SCREEN REFERENCE RANGE: NEGATIVE Orders Last 24hrs: Active Orders 24 hr Category Date Time Status Admission Status [Patient Status] [ADT] Stat ADT 11/17/18 14:17 Active Antiembolic Devices [RC] PER UNIT ROUTINE Care 11/17/18 15:20 Active Communication Order [RC] ROUTINE Care 11/17/18 15:21 Active Intake and Output [RC] QSHIFT Care 11/17/18 15:19 Active Oxygen Therapy [RC] PRN Care 11/17/18 15:19 Active Up With Assistance [RC] ASDIRECTED Care 11/17/18 15:19 Active VTE/DVT Education [RC] PER UNIT ROUTINE Care 11/17/18 15:19 Active Vital Signs [RC] Q4H Care 11/17/18 15:19 Active CULTURE BLOOD [BC] Stat Lab 11/17/18 11:08 Received CULTURE BLOOD [BC] Stat Lab 11/17/18 14:13 Received CULTURE CSF + SMEAR [RM] Stat Lab 11/17/18 13:15 Results CULTURE FUNGUS [MREF] Stat Lab 11/17/18 13:15 Received CULTURE STREP A CONFIRMATION [RM] Stat Lab 11/17/18 11:05 Results HSV 1 AND 2-SPEC AB, IGG W/RFX [REF] Routine Lab 11/17/18 15:26 Received STREP SCRN A RAPID W CULT CONF [RM] Stat Lab 11/17/18 11:05 Results VANCOMYCIN TROUGH [CHEM] Routine Lab 11/18/18 16:00 Ordered Acetaminophen [Tylenol] Med 11/17/18 15:19 Active 650 mg PO Q4H PRN Acyclovir [Zovirax] 800 mg Med 11/17/18 21:30 Active Sodium Chloride 0.9% [Normal Saline] 150 ml IV Q8H Ondansetron [Zofran] Med 11/17/18 15:21 Active 4 mg IVPUSH Q4H PRN Pharmacy to Dose - Vancomycin Med 11/17/18 15:30 Active 1 dose .XX ASDIRECTED Promethazine [Phenergan] Med 11/17/18 20:24 Active 25 mg PO Q6H PRN Sodium Chloride 0.9% [Normal Saline] 1,000 ml Med 11/17/18 15:30 Active IV Q7H Vancomycin 1.25 gm Med 11/17/18 16:30 Active Sodium Chloride 0.9% [Normal Saline] 250 ml IV Q8H cefTRIAXone [Rocephin in Dextrose,Iso-Osm 2 GM/50 ML] 2 Med 11/18/18 01:00 Active gm Premix Bag 1 bag IV Q12H oxyCODONE Med 11/18/18 08:47 Active 5 mg PO Q4H PRN Blood Culture x2 Reflex Set [OM.PC] Stat Oth 11/17/18 14:05 Ordered Sequential Compression Device [OM.PC] Per Unit Routine Oth 11/17/18 15:19 Ordered Resuscitation Status Routine Resus Stat 11/17/18 15:19 Ordered Medication Orders Acetaminophen (Tylenol) 650 mg PO Q4H PRN PRN Reason: Pain (Mild 1-3)/fever Last Admin: 11/18/18 07:49 Dose: 650 mg Admin: 11/17/18 18:56 Dose: 650 mg Sodium Chloride (Normal Saline) 1,000 mls @ 150 mls/hr IV Q7H [facility] Last Admin: 11/18/18 11:16 Dose: 150 mls/hr Infusion: 11/18/18 08:41 Dose: 150 mls/hr Admin: 11/18/18 02:00 Dose: 150 mls/hr Infusion: 11/17/18 23:29 Dose: 150 mls/hr Admin: 11/17/18 16:48 Dose: 150 mls/hr Ceftriaxone Sodium/Dextrose 2 (gm/ Premix) 50 mls @ 100 mls/hr IV Q12H [facility] Last Admin: 11/18/18 02:00 Dose: 100 mls/hr Acyclovir 800 mg/ Sodium (Chloride) 166 mls @ 166 mls/hr IV Q8H [facility] Last Admin: 11/18/18 04:35 Dose: 166 mls/hr Infusion: 11/17/18 21:45 Dose: 166 mls/hr Admin: 11/17/18 20:45 Dose: 166 mls/hr Vancomycin HCl 1.25 gm/ Sodium (Chloride) 250 mls @ 166.667 mls/hr IV Q8H [facility] Last Admin: 11/18/18 07:57 Dose: 166.667 mls/hr Infusion: 11/18/18 02:05 Dose: 166.667 mls/hr Admin: 11/18/18 00:35 Dose: 166.667 mls/hr Infusion: 11/17/18 18:47 Dose: 166.667 mls/hr Admin: 11/17/18 17:17 Dose: 166.667 mls/hr Ondansetron HCl (Zofran) 4 mg IVPUSH Q4H PRN PRN Reason: Nausea Last Admin: 11/17/18 19:47 Dose: 4 mg Oxycodone HCl (Oxycodone) 5 mg PO Q4H PRN PRN Reason: Pain Promethazine HCl (Phenergan) 25 mg PO Q6H PRN PRN Reason: Nausea/Vomiting Last Admin: 11/17/18 22:57 Dose: 25 mg Sodium Chloride (Saline Flush) 10 ml FLUSH ASDIRECTED PRN PRN Reason: Keep Vein Open Last Admin: 11/17/18 11:01 Dose: 10 ml Sodium Chloride (Saline Flush) 2.5 ml FLUSH ASDIRECTED PRN PRN Reason: Keep Vein Open Last Admin: 11/17/18 11:01 Dose: 2.5 ml Vancomycin HCl (Pharmacy To Dose - Vancomycin) 1 dose .XX ASDIRECTED [facility]
[2018-11-17] MEDS ORDERED: Ondansetron 4 MG/2 ML SDV IVPUSH PRN (15:21)
[2018-11-17] MEDS: Sodium Chloride 0.9% 1,000 ML IV SCH (16:48)
--- NOTE | 2018-11-17 16:48 | CR ---
INDICATION: Fever. TECHNIQUE: Single view of the chest. COMPARISON: None. FINDINGS: Heart and mediastinum are normal. Lungs are clear. No consolidations or pleural effusions are identified. Trachea is midline. IMPRESSION: No evidence of acute disease. Dictated by Marcus Padilla MD @ Nov 17 2018 4:46PM Signed by Dr. Marcus Padilla @ Nov 17 2018 4:47PM
[2018-11-17] MEDS: Morphine 4 MG/ML Syringe IVPUSH PRN ×3 (17:40→22:57)
[2018-11-17] MEDS: Acetaminophen 325 MG Tab PO PRN (18:56)
[2018-11-17] MEDS ORDERED: Promethazine 25 MG Tab PO PRN (20:24)
[2018-11-17] MEDS: ACYCLOVIR IV SCH (20:45)
[2018-11-17] MEDS: SODIUM CHLORIDE 0.9% IV SCH (20:45)
[2018-11-18] MEDS: Morphine 4 MG/ML Syringe IVPUSH PRN ×3 (01:59→07:50)
[2018-11-18] MEDS: Sodium Chloride 0.9% 1,000 ML IV SCH ×3 (02:00→20:46)
[2018-11-18] MEDS: cefTRIAXone 2 GM in Premix Bag 1 BAG IV SCH ×2 (02:00→12:40)
[2018-11-18] MEDS: SODIUM CHLORIDE 0.9% IV SCH ×3 (04:35→20:44)
[2018-11-18] MEDS: ACYCLOVIR IV SCH ×3 (04:35→20:44)
[2018-11-18 06:12] LABS: CHLORIDE,CL 102 mmol/L (98-107); SODIUM,NA 137 mmol/L (136-148)
--- NOTE | 2018-11-18 07:02 | PCM.PN ---
- General Info Date of Service: 11/18/18 Admission Dx/Problem (Free Text): Admission Diagnosis/Problem Admission Diagnosis/Problem Aseptic meningitis Subjective Update: The patient is a 23-year-old gentleman who had been admitted yesterday secondary to concerns for meningitis. The patient had a lumbar puncture in the emergency department and this is still pending. The patient today is still complaining of neck stiffness, photophobia and headache. The patient also has been febrile with a MAXIMUM TEMPERATURE of 38.5 Celsius. The patient today says he has not been able to eat. His pain otherwise has been controlled. Functional Status: Reports: Pain Controlled - Review of Systems General: Reports: Fever, Weakness HEENT: Reports: Other (Photophobia) Pulmonary: Reports: No Symptoms Cardiovascular: Reports: No Symptoms Gastrointestinal: Reports: No Symptoms Genitourinary: Reports: No Symptoms Musculoskeletal: Reports: Neck Pain Skin: Reports: No Symptoms Neurological: Reports: Headache Psychiatric: Reports: No Symptoms - Patient Data Vitals - Most Recent: Last Vital Signs Temp 36.7 C 11/18/18 03:00 Pulse 66 11/18/18 03:00 Resp 18 11/18/18 03:00 BP 98/54 L 11/18/18 03:00 Pulse Ox 98 11/18/18 03:00 Weight - Most Recent: 79.379 kg I&O - Last 24 Hours: Intake & Output 11/17/18 11/18/18 11/18/18 22:59 06:59 14:59 Intake Total 0 2316 Output Total 0 500 Balance 0 1816 Lab Results Last 24 Hours: Laboratory Results - last 24 hr 11/17/18 11/17/18 11/17/18 Range/Units 11:00 11:00 11:00 WBC 6.62 (4.0-11.0) K/uL RBC 5.14 (4.50-5.90) M/uL Hgb 15.7 (13.0-17.0) g/dL Hct 46.7 (38.0-50.0) % MCV 90.9 (80.0-98.0) fL MCH 30.5 (27.0-32.0) pg MCHC 33.6 (31.0-37.0) g/dL RDW Std Deviation 43.2 (28.0-62.0) fl RDW Coeff of Kristofer 13 (11.0-15.0) % Plt Count 150 (150-400) K/uL MPV 9.90 (7.40-12.00) fL Neut % (Auto) 65.0 (48.0-80.0) % Lymph % (Auto) 26.0 (16.0-40.0) % [place] % (Auto) 8.5 (0.0-15.0) % Eos % (Auto) 0.3 (0.0-7.0) % Baso % (Auto) 0.2 (0.0-1.5) % Neut # (Auto) 4.3 (1.4-5.7) K/uL Lymph # (Auto) 1.7 (0.6-2.4) K/uL [place] # (Auto) 0.6 (0.0-0.8) K/uL Eos # (Auto) 0.0 (0.0-0.7) K/uL Baso # (Auto) 0.0 (0.0-0.1) K/uL Nucleated RBC % 0.0 /100WBC Nucleated RBCs # 0 K/uL Sodium 138 (136-148) mmol/L Potassium 3.7 (3.5-5.1) mmol/L Chloride 102 (98-107) mmol/L Carbon Dioxide 24.1 (21.0-32.0) mmol/L BUN 12 (7.0-18.0) mg/dL Creatinine 1.3 (0.8-1.3) mg/dL Est Cr Clr Drug Dosing 93.32 mL/min Estimated GFR (MDRD) > 60.0 ml/min Glucose 94 (74-106) mg/dL Calcium 9.1 (8.5-10.1) mg/dL Total Bilirubin 0.8 (0.2-1.0) mg/dL AST 14 L (15-37) IU/L ALT 16 (14-63) IU/L Alkaline Phosphatase 61 (46-116) U/L Total Protein 7.8 (6.4-8.2) g/dL Albumin 4.4 (3.4-5.0) g/dL Globulin 3.4 (2.6-4.0) g/dL Albumin/Globulin Ratio 1.3 (0.9-1.6) TSH 3rd Generation 0.60 (0.36-3.74) uIU/mL Urine Color Urine Appearance Urine pH (5.0-8.0) Ur Specific Adkins (1.001-1.035) Urine Protein (NEGATIVE) mg/dL Urine Glucose (UA) (NEGATIVE) mg/dL Urine Ketones (NEGATIVE) mg/dL Urine Occult Blood (NEGATIVE) Urine Nitrite (NEGATIVE) Urine Bilirubin (NEGATIVE) Urine Urobilinogen (<2.0) EU/dL Ur Leukocyte Esterase (NEGATIVE) CSF Appearance CSF Color CSF WBC (0-0.005) K/uL CSF RBC (0.0-0.0) M/uL CSF Mononuclear Cells % CSF Polymorphonuclear % CSF Glucose (40-70) mg/dL CSF Total Protein (15-45) mg/dL Urine Opiates Screen (NEGATIVE) Ur Oxycodone Screen (NEGATIVE) Urine Methadone Screen (NEGATIVE) Ur Barbiturates Screen (NEGATIVE) Ur Phencyclidine Scrn (NEGATIVE) Ur Amphetamine Screen (NEGATIVE) U Methamphetamines Scrn (NEGATIVE) U Benzodiazepines Scrn (NEGATIVE) U Cocaine Metab Screen (NEGATIVE) U Marijuana (THC) Screen (NEGATIVE) Ethyl Alcohol < 3.0 mg/dL HIV 1&2 Ag/Ab, 4th Gen 0.3 (<1.0) INDEX 11/17/18 11/17/18 11/17/18 Range/Units 11:05 11:05 13:15 WBC (4.0-11.0) K/uL RBC (4.50-5.90) M/uL Hgb (13.0-17.0) g/dL Hct (38.0-50.0) % MCV (80.0-98.0) fL MCH (27.0-32.0) pg MCHC (31.0-37.0) g/dL RDW Std Deviation (28.0-62.0) fl RDW Coeff of Kristofer (11.0-15.0) % Plt Count (150-400) K/uL MPV (7.40-12.00) fL Neut % (Auto) (48.0-80.0) % Lymph % (Auto) (16.0-40.0) % [place] % (Auto) (0.0-15.0) % Eos % (Auto) (0.0-7.0) % Baso % (Auto) (0.0-1.5) % Neut # (Auto) (1.4-5.7) K/uL Lymph # (Auto) (0.6-2.4) K/uL [place] # (Auto) (0.0-0.8) K/uL Eos # (Auto) (0.0-0.7) K/uL Baso # (Auto) (0.0-0.1) K/uL Nucleated RBC % /100WBC Nucleated RBCs # K/uL Sodium (136-148) mmol/L Potassium (3.5-5.1) mmol/L Chloride (98-107) mmol/L Carbon Dioxide (21.0-32.0) mmol/L BUN (7.0-18.0) mg/dL Creatinine (0.8-1.3) mg/dL Est Cr Clr Drug Dosing mL/min Estimated GFR (MDRD) ml/min Glucose (74-106) mg/dL Calcium (8.5-10.1) mg/dL Total Bilirubin (0.2-1.0) mg/dL AST (15-37) IU/L ALT (14-63) IU/L Alkaline Phosphatase (46-116) U/L Total Protein (6.4-8.2) g/dL Albumin (3.4-5.0) g/dL Globulin (2.6-4.0) g/dL Albumin/Globulin Ratio (0.9-1.6) TSH 3rd Generation (0.36-3.74) uIU/mL Urine Color YELLOW Urine Appearance CLEAR Urine pH 7.0 (5.0-8.0) Ur Specific [place] 1.020 (1.001-1.035) Urine Protein NEGATIVE (NEGATIVE) mg/dL Urine Glucose (UA) NEGATIVE (NEGATIVE) mg/dL Urine Ketones 40 H (NEGATIVE) mg/dL Urine Occult Blood NEGATIVE (NEGATIVE) Urine Nitrite NEGATIVE (NEGATIVE) Urine Bilirubin NEGATIVE (NEGATIVE) Urine Urobilinogen 0.2 (<2.0) EU/dL Ur Leukocyte Esterase NEGATIVE (NEGATIVE) CSF Appearance CLEAR CSF Color COLORLESS CSF WBC 0.097 H (0-0.005) K/uL CSF RBC 0.000 (0.0-0.0) M/uL CSF Mononuclear Cells 93.8 % CSF Polymorphonuclear 6.2 % CSF Glucose (40-70) mg/dL CSF Total Protein (15-45) mg/dL Urine Opiates Screen NEGATIVE (NEGATIVE) Ur Oxycodone Screen NEGATIVE (NEGATIVE) Urine Methadone Screen NEGATIVE (NEGATIVE) Ur Barbiturates Screen NEGATIVE (NEGATIVE) Ur Phencyclidine Scrn NEGATIVE (NEGATIVE) Ur Amphetamine Screen NEGATIVE (NEGATIVE) U Methamphetamines Scrn NEGATIVE (NEGATIVE) U Benzodiazepines Scrn NEGATIVE (NEGATIVE) U Cocaine Metab Screen NEGATIVE (NEGATIVE) U Marijuana (THC) Screen NEGATIVE (NEGATIVE) Ethyl Alcohol mg/dL HIV 1&2 Ag/Ab, 4th Gen (<1.0) INDEX 11/17/18 11/18/18 11/18/18 Range/Units 13:15 05:30 05:30 WBC 7.81 (4.0-11.0) K/uL RBC 4.58 (4.50-5.90) M/uL Hgb 13.7 (13.0-17.0) g/dL Hct 41.6 (38.0-50.0) % MCV 90.8 (80.0-98.0) fL MCH 29.9 (27.0-32.0) pg MCHC 32.9 (31.0-37.0) g/dL RDW Std Deviation 42.1 (28.0-62.0) fl RDW Coeff of Kristofer 13 (11.0-15.0) % Plt Count 144 L (150-400) K/uL MPV 10.20 (7.40-12.00) fL Neut % (Auto) 65.5 (48.0-80.0) % Lymph % (Auto) 23.3 (16.0-40.0) % [place] % (Auto) 10.8 (0.0-15.0) % Eos % (Auto) 0.1 (0.0-7.0) % Baso % (Auto) 0.3 (0.0-1.5) % Neut # (Auto) 5.1 (1.4-5.7) K/uL Lymph # (Auto) 1.8 (0.6-2.4) K/uL [place] # (Auto) 0.8 (0.0-0.8) K/uL Eos # (Auto) 0.0 (0.0-0.7) K/uL Baso # (Auto) 0.0 (0.0-0.1) K/uL Nucleated RBC % 0.0 /100WBC Nucleated RBCs # 0 K/uL Sodium 137 (136-148) mmol/L Potassium 3.7 (3.5-5.1) mmol/L Chloride 102 (98-107) mmol/L Carbon Dioxide 22.8 (21.0-32.0) mmol/L BUN 8 (7.0-18.0) mg/dL Creatinine 1.0 (0.8-1.3) mg/dL Est Cr Clr Drug Dosing 113.91 mL/min Estimated GFR (MDRD) > 60.0 ml/min Glucose 92 (74-106) mg/dL Calcium 8.2 L (8.5-10.1) mg/dL Total Bilirubin (0.2-1.0) mg/dL AST (15-37) IU/L ALT (14-63) IU/L Alkaline Phosphatase (46-116) U/L Total Protein (6.4-8.2) g/dL Albumin (3.4-5.0) g/dL Globulin (2.6-4.0) g/dL Albumin/Globulin Ratio (0.9-1.6) TSH 3rd Generation (0.36-3.74) uIU/mL Urine Color Urine Appearance Urine pH (5.0-8.0) Ur Specific Adkins (1.001-1.035) Urine Protein (NEGATIVE) mg/dL Urine Glucose (UA) (NEGATIVE) mg/dL Urine Ketones (NEGATIVE) mg/dL Urine Occult Blood (NEGATIVE) Urine Nitrite (NEGATIVE) Urine Bilirubin (NEGATIVE) Urine Urobilinogen (<2.0) EU/dL Ur Leukocyte Esterase (NEGATIVE) CSF Appearance CSF Color CSF WBC (0-0.005) K/uL CSF RBC (0.0-0.0) M/uL CSF Mononuclear Cells % CSF Polymorphonuclear % CSF Glucose 52.0 (40-70) mg/dL CSF Total Protein 87 H (15-45) mg/dL Urine Opiates Screen (NEGATIVE) Ur Oxycodone Screen (NEGATIVE) Urine Methadone Screen (NEGATIVE) Ur Barbiturates Screen (NEGATIVE) Ur Phencyclidine Scrn (NEGATIVE) Ur Amphetamine Screen (NEGATIVE) U Methamphetamines Scrn (NEGATIVE) U Benzodiazepines Scrn (NEGATIVE) U Cocaine Metab Screen (NEGATIVE) U Marijuana (THC) Screen (NEGATIVE) Ethyl Alcohol mg/dL HIV 1&2 Ag/Ab, 4th Gen (<1.0) INDEX Kuldip Results Last 24 Hours: Microbiology 11/17/18 13:15 Gram Stain - Preliminary Cerebral Spinal Fluid 11/17/18 11:05 Influenza Type A Antigen Screen - Final Nasopharyngeal Swab NEGATIVE INFLUENZA A VIRUS AG REFERENCE RANGE: NEGATIVE Influenza Type B Antigen Screen - Final NEGATIVE INFLUENZA B VIRUS AG REFERENCE RANGE: NEGATIVE 11/17/18 11:05 Group A Streptococcus Rapid Screen - Final Throat NEGATIVE STREP A SCREEN REFERENCE RANGE: NEGATIVE Med Orders - Current: Current Medications Acetaminophen (Tylenol) 650 mg PO Q4H PRN PRN Reason: Pain (Mild 1-3)/fever Last Admin: 11/17/18 18:56 Dose: 650 mg Sodium Chloride (Normal Saline) 1,000 mls @ 150 mls/hr IV Q7H [facility] Last Admin: 11/18/18 02:00 Dose: 150 mls/hr Ceftriaxone Sodium/Dextrose 2 (gm/ Premix) 50 mls @ 100 mls/hr IV Q12H [facility] Last Admin: 11/18/18 02:00 Dose: 100 mls/hr Acyclovir 800 mg/ Sodium (Chloride) 166 mls @ 166 mls/hr IV Q8H [facility] Last Admin: 11/18/18 04:35 Dose: 166 mls/hr Vancomycin HCl 1.25 gm/ Sodium (Chloride) 250 mls @ 166.667 mls/hr IV Q8H [facility] Last Admin: 11/18/18 00:35 Dose: 166.667 mls/hr Morphine Sulfate (Morphine) 3 mg IVPUSH Q2H PRN PRN Reason: Pain (severe 7-10) Last Admin: 11/18/18 04:34 Dose: 3 mg Ondansetron HCl (Zofran) 4 mg IVPUSH Q4H PRN PRN Reason: Nausea Last Admin: 11/17/18 19:47 Dose: 4 mg Promethazine HCl (Phenergan) 25 mg PO Q6H PRN PRN Reason: Nausea/Vomiting Last Admin: 11/17/18 22:57 Dose: 25 mg Sodium Chloride (Saline Flush) 10 ml FLUSH ASDIRECTED PRN PRN Reason: Keep Vein Open Last Admin: 11/17/18 11:01 Dose: 10 ml Sodium Chloride (Saline Flush) 2.5 ml FLUSH ASDIRECTED PRN PRN Reason: Keep Vein Open Last Admin: 11/17/18 11:01 Dose: 2.5 ml Vancomycin HCl (Pharmacy To Dose - Vancomycin) 1 dose .XX ASDIRECTED [facility]ONYA Discontinued Medications Acetaminophen (Tylenol) 1,000 mg PO NOW ONE Stop: 11/17/18 11:23 Last Admin: 11/17/18 11:33 Dose: Not Given Acetaminophen (Tylenol Extra Strength) 1,000 mg PO ONETIME ONE Stop: 11/17/18 11:32 Last Admin: 11/17/18 11:38 Dose: 1,000 mg Acetaminophen (Tylenol) 650 mg PO NOW ONE Stop: 11/17/18 20:25 Last Admin: 11/17/18 20:43 Dose: 650 mg Hydromorphone HCl (Dilaudid) 1 mg IVPUSH ONETIME ONE Stop: 11/17/18 13:28 Last Admin: 11/17/18 13:34 Dose: 1 mg Sodium Chloride (Normal Saline) 1,000 mls @ 999 mls/hr IV STAT ONE Stop: 11/17/18 11:54 Last Admin: 11/17/18 11:01 Dose: 999 mls/hr Sodium Chloride (Normal Saline) 1,000 mls @ 999 mls/hr IV STAT ONE Stop: 11/17/18 13:40 Last Admin: 11/17/18 12:58 Dose: 999 mls/hr Ceftriaxone Sodium/Dextrose 2 (gm/ Premix) 50 mls @ 100 mls/hr IV ONETIME ONE Stop: 11/17/18 13:19 Last Admin: 11/17/18 12:58 Dose: 100 mls/hr Acyclovir 800 mg/ Sodium (Chloride) 66 mls @ 50 mls/hr IV ONETIME ONE Stop: 11/17/18 14:20 Last Admin: 11/17/18 13:35 Dose: Not Given Acyclovir 800 mg/ Sodium (Chloride) 166 mls @ 166 mls/hr IV ONETIME ONE Stop: 11/17/18 14:14 Last Admin: 11/17/18 13:32 Dose: 166 mls/hr Ketorolac Tromethamine (Toradol) 60 mg IM ONETIME ONE Stop: 11/17/18 12:14 Last Admin: 11/17/18 12:35 Dose: Not Given Ketorolac Tromethamine (Toradol) 30 mg IVPUSH ONETIME ONE Stop: 11/17/18 12:25 Last Admin: 11/17/18 12:33 Dose: 30 mg Ondansetron HCl (Zofran) 4 mg IVPUSH ONETIME ONE Stop: 11/17/18 13:28 Last Admin: 11/17/18 13:34 Dose: 4 mg - Exam Quality Assessment: No: Supplemental Oxygen General: Alert, Oriented, Cooperative, Mild Distress HEENT: Pupils Equal, Pupils Reactive, EOMI, Mucous Membr. Moist/[place] Neck: Supple, Trachea Midline Lungs: Clear to Auscultation, Normal Respiratory Effort Cardiovascular: Regular Rhythm, No Murmurs, Tachycardia GI/Abdominal Exam: Normal Bowel Sounds, Soft, No Distention Back Exam: Normal Inspection, Decreased Range of Motion (nucal Rigidity) Extremities: Normal Inspection, No Pedal Edema Skin: Warm, Dry, Intact. No: Rash Neurological: No New Focal Deficit Psy/Mental Status: Alert, Normal Affect, Normal Mood - Problem List & Annotations (1) Meningitis SNOMED Code(s): 6933868 Code(s): G03.9 - MENINGITIS, UNSPECIFIED Status: Acute Current Visit: Yes - Problem List Review Problem List Initiated/Reviewed/Updated: Yes - My Orders Last 24 Hours: My Active Orders 11/17/18 20:24 Promethazine [Phenergan] 25 mg PO Q6H PRN - Plan Plan:: The patient is a 23-year-old gentleman who was admitted secondary to suspected viral/aseptic meningitis. The cerebrospinal fluid test are currently pending and because of this the patient will be kept on Rocephin and vancomycin along with acyclovir. Once the patient's viral studies have returned and these will be escalated. The patient will be kept in hospitalization secondary to his fevers and his pain. The patient will also be kept on DVT prophylaxis with the use of SCDs. The patient should be appropriate for discharge in 1-2 days. In the meantime the patient will be kept in droplet isolation until cultures have returned. The patient has been encouraged to eat. IV fluids will be maintained.
[2018-11-18] MEDS: Acetaminophen 325 MG Tab PO PRN ×2 (07:49→18:46)
[2018-11-18] MEDS: oxyCODONE 5 MG Tab PO PRN ×3 (14:27→23:32)
[2018-11-18] MEDS ORDERED: Cyclobenzaprine 10 MG Tab PO ONE (20:00)
[2018-11-18] MEDS ORDERED: Cyclobenzaprine 5 MG Tab PO ONE (20:00)
[2018-11-18] MEDS: VANCOMYCIN/WATER FOR INJ (PEG) 1.5 GM in Premix Bag 1 BAG IV SCH (23:33)
[2018-11-19] MEDS: cefTRIAXone 2 GM in Premix Bag 1 BAG IV SCH (01:59)
[2018-11-19] MEDS: SODIUM CHLORIDE 0.9% IV SCH (05:34)
[2018-11-19] MEDS: ACYCLOVIR IV SCH (05:34)
[2018-11-19] MEDS: Sodium Chloride 0.9% 1,000 ML IV SCH (05:44)
--- NOTE | 2018-11-19 05:47 | PCM.PN ---
- Patient Data Vitals - Most Recent: Last Vital Signs Temp 36.0 C 11/19/18 00:00 Pulse 82 11/19/18 00:00 Resp 18 11/19/18 00:00 BP 123/61 11/19/18 00:00 Pulse Ox 97 11/19/18 00:00 Weight - Most Recent: 79.379 kg I&O - Last 24 Hours: Intake & Output 11/18/18 11/18/18 11/19/18 14:59 22:59 06:59 Intake Total 3318 Output Total 3200 Balance 118 Lab Results Last 24 Hours: Laboratory Results - last 24 hr 11/18/18 11/18/18 11/18/18 Range/Units 05:30 05:30 16:05 WBC 7.81 (4.0-11.0) K/uL RBC 4.58 (4.50-5.90) M/uL Hgb 13.7 (13.0-17.0) g/dL Hct 41.6 (38.0-50.0) % MCV 90.8 (80.0-98.0) fL MCH 29.9 (27.0-32.0) pg MCHC 32.9 (31.0-37.0) g/dL RDW Std Deviation 42.1 (28.0-62.0) fl RDW Coeff of Kristofer 13 (11.0-15.0) % Plt Count 144 L (150-400) K/uL MPV 10.20 (7.40-12.00) fL Neut % (Auto) 65.5 (48.0-80.0) % Lymph % (Auto) 23.3 (16.0-40.0) % [place] % (Auto) 10.8 (0.0-15.0) % Eos % (Auto) 0.1 (0.0-7.0) % Baso % (Auto) 0.3 (0.0-1.5) % Neut # (Auto) 5.1 (1.4-5.7) K/uL Lymph # (Auto) 1.8 (0.6-2.4) K/uL [place] # (Auto) 0.8 (0.0-0.8) K/uL Eos # (Auto) 0.0 (0.0-0.7) K/uL Baso # (Auto) 0.0 (0.0-0.1) K/uL Nucleated RBC % 0.0 /100WBC Nucleated RBCs # 0 K/uL Sodium 137 (136-148) mmol/L Potassium 3.7 (3.5-5.1) mmol/L Chloride 102 (98-107) mmol/L Carbon Dioxide 22.8 (21.0-32.0) mmol/L BUN 8 (7.0-18.0) mg/dL Creatinine 1.0 (0.8-1.3) mg/dL Est Cr Clr Drug Dosing 113.91 mL/min Estimated GFR (MDRD) > 60.0 ml/min Glucose 92 (74-106) mg/dL Calcium 8.2 L (8.5-10.1) mg/dL Vancomycin Trough 7.7 (5.0-10.0) ug/mL Kuldip Results Last 24 Hours: Microbiology 11/17/18 14:13 Aerobic Blood Culture - Preliminary Blood - Venous - Lab Draw NO GROWTH AFTER 1 DAY Anaerobic Blood Culture - Preliminary NO GROWTH AFTER 1 DAY 11/17/18 11:08 Aerobic Blood Culture - Preliminary Blood - Venous NO GROWTH AFTER 1 DAY Anaerobic Blood Culture - Preliminary NO GROWTH AFTER 1 DAY 11/17/18 13:15 Gram Stain - Preliminary Cerebral Spinal Fluid CSF Culture - Preliminary NO GROWTH AFTER 1 DAY Med Orders - Current: Current Medications Acetaminophen (Tylenol) 650 mg PO Q4H PRN PRN Reason: Pain (Mild 1-3)/fever Last Admin: 11/18/18 18:46 Dose: 650 mg Sodium Chloride (Normal Saline) 1,000 mls @ 150 mls/hr IV Q7H [facility] Last Admin: 11/19/18 05:44 Dose: 150 mls/hr Ceftriaxone Sodium/Dextrose 2 (gm/ Premix) 50 mls @ 100 mls/hr IV Q12H [facility] Last Admin: 11/19/18 01:59 Dose: 100 mls/hr Acyclovir 800 mg/ Sodium (Chloride) 166 mls @ 166 mls/hr IV Q8H [facility] Last Admin: 11/19/18 05:34 Dose: 166 mls/hr Vancomycin HCl 1.5 gm/ Premix 300 mls @ 200 mls/hr IV Q8H [facility] Last Admin: 11/18/18 23:33 Dose: 200 mls/hr Ondansetron HCl (Zofran) 4 mg IVPUSH Q4H PRN PRN Reason: Nausea Last Admin: 11/17/18 19:47 Dose: 4 mg Oxycodone HCl (Oxycodone) 5 mg PO Q4H PRN PRN Reason: Pain Last Admin: 11/18/18 23:32 Dose: 5 mg Promethazine HCl (Phenergan) 25 mg PO Q6H PRN PRN Reason: Nausea/Vomiting Last Admin: 11/17/18 22:57 Dose: 25 mg Sodium Chloride (Saline Flush) 10 ml FLUSH ASDIRECTED PRN PRN Reason: Keep Vein Open Last Admin: 11/17/18 11:01 Dose: 10 ml Sodium Chloride (Saline Flush) 2.5 ml FLUSH ASDIRECTED PRN PRN Reason: Keep Vein Open Last Admin: 11/17/18 11:01 Dose: 2.5 ml Vancomycin HCl (Pharmacy To Dose - Vancomycin) 1 dose .XX ASDIRECTED TONYA Discontinued Medications Acetaminophen (Tylenol) 1,000 mg PO NOW ONE Stop: 11/17/18 11:23 Last Admin: 11/17/18 11:33 Dose: Not Given Acetaminophen (Tylenol Extra Strength) 1,000 mg PO ONETIME ONE Stop: 11/17/18 11:32 Last Admin: 11/17/18 11:38 Dose: 1,000 mg Acetaminophen (Tylenol) 650 mg PO NOW ONE Stop: 11/17/18 20:25 Last Admin: 11/17/18 20:43 Dose: 650 mg Cyclobenzaprine HCl (Flexeril) 2 mg PO ONETIME ONE Stop: 11/18/18 20:01 Last Admin: 11/18/18 23:26 Dose: Not Given Cyclobenzaprine HCl (Flexeril) 10 mg PO ONETIME ONE Stop: 11/18/18 20:01 Last Admin: 11/18/18 20:44 Dose: 10 mg Hydromorphone HCl (Dilaudid) 1 mg IVPUSH ONETIME ONE Stop: 11/17/18 13:28 Last Admin: 11/17/18 13:34 Dose: 1 mg Sodium Chloride (Normal Saline) 1,000 mls @ 999 mls/hr IV STAT ONE Stop: 11/17/18 11:54 Last Admin: 11/17/18 11:01 Dose: 999 mls/hr Sodium Chloride (Normal Saline) 1,000 mls @ 999 mls/hr IV STAT ONE Stop: 11/17/18 13:40 Last Admin: 11/17/18 12:58 Dose: 999 mls/hr Ceftriaxone Sodium/Dextrose 2 (gm/ Premix) 50 mls @ 100 mls/hr IV ONETIME ONE Stop: 11/17/18 13:19 Last Admin: 11/17/18 12:58 Dose: 100 mls/hr Acyclovir 800 mg/ Sodium (Chloride) 66 mls @ 50 mls/hr IV ONETIME ONE Stop: 11/17/18 14:20 Last Admin: 11/17/18 13:35 Dose: Not Given Acyclovir 800 mg/ Sodium (Chloride) 166 mls @ 166 mls/hr IV ONETIME ONE Stop: 11/17/18 14:14 Last Admin: 11/17/18 13:32 Dose: 166 mls/hr Vancomycin HCl 1.25 gm/ Sodium (Chloride) 250 mls @ 166.667 mls/hr IV Q8H [facility] Last Admin: 11/18/18 17:00 Dose: 166.667 mls/hr Ketorolac Tromethamine (Toradol) 60 mg IM ONETIME ONE Stop: 11/17/18 12:14 Last Admin: 11/17/18 12:35 Dose: Not Given Ketorolac Tromethamine (Toradol) 30 mg IVPUSH ONETIME ONE Stop: 11/17/18 12:25 Last Admin: 11/17/18 12:33 Dose: 30 mg Morphine Sulfate (Morphine) 3 mg IVPUSH Q2H PRN PRN Reason: Pain (severe 7-10) Last Admin: 11/18/18 07:50 Dose: 3 mg Ondansetron HCl (Zofran) 4 mg IVPUSH ONETIME ONE Stop: 11/17/18 13:28 Last Admin: 11/17/18 13:34 Dose: 4 mg - Problem List & Annotations (1) Meningitis SNOMED Code(s): 1035504 Code(s): G03.9 - MENINGITIS, UNSPECIFIED Status: Acute Current Visit: Yes - My Orders Last 24 Hours: My Active Orders 11/18/18 08:47 oxyCODONE 5 mg PO Q4H PRN 11/18/18 23:00 Vancomycin/Water For Inj (Peg) [Vancomycin 1.5 GM/300 ML Bag] 1.5 gm Premix Bag 1 bag IV Q8H 11/19/18 05:11 BASIC METABOLIC PANEL,BMP [CHEM] AM CBC WITH AUTO DIFF [HEME] AM 11/20/18 06:30 VANCOMYCIN TROUGH [CHEM] Timed - Plan Plan:: The patient is a 23-year-old gentleman who was admitted secondary to suspected viral/aseptic meningitis. The cerebrospinal fluid test are currently pending and because of this the patient will be kept on Rocephin and vancomycin along with acyclovir. Once the patient's viral studies have returned and these will be escalated. The patient will be kept in hospitalization secondary to his fevers and his pain. The patient will also be kept on DVT prophylaxis with the use of SCDs. The patient should be appropriate for discharge in 1-2 days. In the meantime the patient will be kept in droplet isolation until cultures have returned. The patient has been encouraged to eat. IV fluids will be maintained.
[2018-11-19] MEDS: VANCOMYCIN/WATER FOR INJ (PEG) 1.5 GM in Premix Bag 1 BAG IV SCH (06:44)
[2018-11-19 06:59] LABS: CHLORIDE,CL 100 mmol/L (98-107); SODIUM,NA 136 mmol/L (136-148)
[2018-11-19 08:07] VITALS: BP 107/64
--- NOTE | 2018-11-19 09:44 | PCM.DCSUM1 ---
Discharge Summary - Hospital Course HPI Initial Comments: Admitted secondary to viral/aseptic meningitis. Diagnosis: Stroke: No - Discharge Data Discharge Date: 11/19/18 Discharge Disposition: Home, Self-Care 01 Condition: Good - Discharge Diagnosis/Problem(s) (1) Meningitis SNOMED Code(s): 3635526 ICD Code: G03.9 - MENINGITIS, UNSPECIFIED Status: Resolved - Patient Summary/Data Hospital Course: The patient is a 23-year-old gentleman who had been admitted to acute hospitalization on November 17, 2018 out of concern for viral/aseptic meningitis. The patient had presented to the emergency department with headache body aches and neck pain. Throughout the course of hospitalization the patient did not have any evidence of leukocytosis. The patient also had been afebrile. Toxicology screen showed no drugs of abuse detected. Lumbar puncture was completed in the emergency department which showed clear colorless CSF along with minimal white blood cells and 0.097 and total protein high at 87 and normal glucose. The patient had been started on Rocephin as well as acyclovir for coverage of viral and/or bacterial meningitis. The patient's HIV is negative. Other viral serologies are currently pending. The patient was also fluid resuscitated. The patient also had pain control with the use of narcotic pain medications. The patient had continued to improve through the short course of hospitalization. By day of discharge he was afebrile. Photophobia had resolved. His symptoms had resolved. The patient was discharged with acyclovir 500 mg by mouth twice a day. He is recommended to follow-up with his primary care physician. The patient also is to have diet as tolerated. The patient is to have activity as tolerated. The patient has been hemodynamically stable and he has been discharged from acute hospitalization with recommendations above. - Patient Instructions Diet: Heart Healthy Diet Activity: As Tolerated Notify Provider of: Fever, Increased Pain - Discharge Plan *PRESCRIPTION DRUG MONITORING PROGRAM REVIEWED*: Not Applicable *COPY OF PRESCRIPTION DRUG MONITORING REPORT IN PATIENT JASON: Not Applicable Prescriptions/Med Rec: Acyclovir [Zovirax] 400 mg PO DAILY #5 tablet Home Medications: Home Meds Acyclovir [Zovirax] 400 mg PO DAILY #5 tablet 11/19/18 [Rx] Oxygen Therapy Mode: Room Air Patient Handouts: Acyclovir tablets or capsules, Viral Meningitis, Adult - Discharge Summary/Plan Comment DC Time >30 min.: Yes - General Info Date of Service: 11/19/18 Admission Dx/Problem (Free Text: Admission Diagnosis/Problem Admission Diagnosis/Problem Aseptic meningitis Subjective Update: Patient is doing better today. The patient feels like he can go home. Functional Status: Reports: Pain Controlled - Review of Systems General: Reports: No Symptoms HEENT: Reports: No Symptoms Pulmonary: Reports: No Symptoms Cardiovascular: Reports: No Symptoms Gastrointestinal: Reports: No Symptoms Genitourinary: Reports: No Symptoms Musculoskeletal: Reports: No Symptoms Skin: Reports: No Symptoms Neurological: Reports: No Symptoms Psychiatric: Reports: No Symptoms - Patient Data Vitals - Most Recent: Last Vital Signs Temp 36.8 C 11/19/18 08:06 Pulse 55 L 11/19/18 08:06 Resp 16 11/19/18 08:06 BP 107/64 11/19/18 08:06 Pulse Ox 98 11/19/18 08:06 Weight - Most Recent: 79.379 kg I&O - Last 24 hours: Intake & Output 11/18/18 11/19/18 11/19/18 22:59 06:59 14:59 Intake Total 3318 2399 Output Total 3200 1500 Balance 118 899 Lab Results - Last 24 hrs: Laboratory Results - last 24 hr 11/18/18 11/19/18 11/19/18 Range/Units 16:05 06:24 06:24 WBC 6.42 (4.0-11.0) K/uL RBC 4.70 (4.50-5.90) M/uL Hgb 14.2 (13.0-17.0) g/dL Hct 42.4 (38.0-50.0) % MCV 90.2 (80.0-98.0) fL MCH 30.2 (27.0-32.0) pg MCHC 33.5 (31.0-37.0) g/dL RDW Std Deviation 41.4 (28.0-62.0) fl RDW Coeff of Kristofer 13 (11.0-15.0) % Plt Count 125 L (150-400) K/uL MPV 9.30 (7.40-12.00) fL Neut % (Auto) 53.1 (48.0-80.0) % Lymph % (Auto) 34.1 (16.0-40.0) % [place] % (Auto) 11.7 (0.0-15.0) % Eos % (Auto) 0.8 (0.0-7.0) % Baso % (Auto) 0.3 (0.0-1.5) % Neut # (Auto) 3.4 (1.4-5.7) K/uL Lymph # (Auto) 2.2 (0.6-2.4) K/uL [place] # (Auto) 0.8 (0.0-0.8) K/uL Eos # (Auto) 0.1 (0.0-0.7) K/uL Baso # (Auto) 0.0 (0.0-0.1) K/uL Nucleated RBC % 0.0 /100WBC Nucleated RBCs # 0 K/uL Sodium 136 (136-148) mmol/L Potassium 4.2 (3.5-5.1) mmol/L Chloride 100 (98-107) mmol/L Carbon Dioxide 27.0 (21.0-32.0) mmol/L BUN 7 (7.0-18.0) mg/dL Creatinine 1.0 (0.8-1.3) mg/dL Est Cr Clr Drug Dosing 113.91 mL/min Estimated GFR (MDRD) > 60.0 ml/min Glucose 94 (74-106) mg/dL Calcium 8.7 (8.5-10.1) mg/dL Vancomycin Trough 7.7 (5.0-10.0) ug/mL MULUGETA Results - Last 24 hrs: Microbiology 11/17/18 13:15 Gram Stain - Preliminary Cerebral Spinal Fluid CSF Culture - Preliminary NO GROWTH AFTER 2 DAYS 11/17/18 11:05 Quick Strep Confirmation Culture - Final Throat NO GROUP A STREP ISOLATED REFERENCE RANGE: NEGATIVE Group A Streptococcus Rapid Screen - Final NEGATIVE STREP A SCREEN REFERENCE RANGE: NEGATIVE 11/17/18 14:13 Aerobic Blood Culture - Preliminary Blood - Venous - Lab Draw NO GROWTH AFTER 1 DAY Anaerobic Blood Culture - Preliminary NO GROWTH AFTER 1 DAY 11/17/18 11:08 Aerobic Blood Culture - Preliminary Blood - Venous NO GROWTH AFTER 1 DAY Anaerobic Blood Culture - Preliminary NO GROWTH AFTER 1 DAY Med Orders - Current: Current Medications Acetaminophen (Tylenol) 650 mg PO Q4H PRN PRN Reason: Pain (Mild 1-3)/fever Last Admin: 11/18/18 18:46 Dose: 650 mg Sodium Chloride (Normal Saline) 1,000 mls @ 150 mls/hr IV Q7H [facility]ONYA Last Admin: 11/19/18 05:44 Dose: 150 mls/hr Ceftriaxone Sodium/Dextrose 2 (gm/ Premix) 50 mls @ 100 mls/hr IV Q12H TONYA Last Admin: 11/19/18 01:59 Dose: 100 mls/hr Acyclovir 800 mg/ Sodium (Chloride) 166 mls @ 166 mls/hr IV Q8H TONYA Last Admin: 11/19/18 05:34 Dose: 166 mls/hr Vancomycin HCl 1.5 gm/ Premix 300 mls @ 200 mls/hr IV Q8H [facility] Last Admin: 11/19/18 06:44 Dose: 200 mls/hr Ondansetron HCl (Zofran) 4 mg IVPUSH Q4H PRN PRN Reason: Nausea Last Admin: 11/17/18 19:47 Dose: 4 mg Oxycodone HCl (Oxycodone) 5 mg PO Q4H PRN PRN Reason: Pain Last Admin: 11/18/18 23:32 Dose: 5 mg Promethazine HCl (Phenergan) 25 mg PO Q6H PRN PRN Reason: Nausea/Vomiting Last Admin: 11/17/18 22:57 Dose: 25 mg Sodium Chloride (Saline Flush) 10 ml FLUSH ASDIRECTED PRN PRN Reason: Keep Vein Open Last Admin: 11/17/18 11:01 Dose: 10 ml Sodium Chloride (Saline Flush) 2.5 ml FLUSH ASDIRECTED PRN PRN Reason: Keep Vein Open Last Admin: 11/17/18 11:01 Dose: 2.5 ml Vancomycin HCl (Pharmacy To Dose - Vancomycin) 1 dose .XX ASDIRECTED [facility] Discontinued Medications Acetaminophen (Tylenol) 1,000 mg PO NOW ONE Stop: 11/17/18 11:23 Last Admin: 11/17/18 11:33 Dose: Not Given Acetaminophen (Tylenol Extra Strength) 1,000 mg PO ONETIME ONE Stop: 11/17/18 11:32 Last Admin: 11/17/18 11:38 Dose: 1,000 mg Acetaminophen (Tylenol) 650 mg PO NOW ONE Stop: 11/17/18 20:25 Last Admin: 11/17/18 20:43 Dose: 650 mg Cyclobenzaprine HCl (Flexeril) 2 mg PO ONETIME ONE Stop: 11/18/18 20:01 Last Admin: 11/18/18 23:26 Dose: Not Given Cyclobenzaprine HCl (Flexeril) 10 mg PO ONETIME ONE Stop: 11/18/18 20:01 Last Admin: 11/18/18 20:44 Dose: 10 mg Hydromorphone HCl (Dilaudid) 1 mg IVPUSH ONETIME ONE Stop: 11/17/18 13:28 Last Admin: 11/17/18 13:34 Dose: 1 mg Sodium Chloride (Normal Saline) 1,000 mls @ 999 mls/hr IV STAT ONE Stop: 11/17/18 11:54 Last Admin: 11/17/18 11:01 Dose: 999 mls/hr Sodium Chloride (Normal Saline) 1,000 mls @ 999 mls/hr IV STAT ONE Stop: 11/17/18 13:40 Last Admin: 11/17/18 12:58 Dose: 999 mls/hr Ceftriaxone Sodium/Dextrose 2 (gm/ Premix) 50 mls @ 100 mls/hr IV ONETIME ONE Stop: 11/17/18 13:19 Last Admin: 11/17/18 12:58 Dose: 100 mls/hr Acyclovir 800 mg/ Sodium (Chloride) 66 mls @ 50 mls/hr IV ONETIME ONE Stop: 11/17/18 14:20 Last Admin: 11/17/18 13:35 Dose: Not Given Acyclovir 800 mg/ Sodium (Chloride) 166 mls @ 166 mls/hr IV ONETIME ONE Stop: 11/17/18 14:14 Last Admin: 11/17/18 13:32 Dose: 166 mls/hr Vancomycin HCl 1.25 gm/ Sodium (Chloride) 250 mls @ 166.667 mls/hr IV Q8H TONYA Last Admin: 11/18/18 17:00 Dose: 166.667 mls/hr Ketorolac Tromethamine (Toradol) 60 mg IM ONETIME ONE Stop: 11/17/18 12:14 Last Admin: 11/17/18 12:35 Dose: Not Given Ketorolac Tromethamine (Toradol) 30 mg IVPUSH ONETIME ONE Stop: 11/17/18 12:25 Last Admin: 11/17/18 12:33 Dose: 30 mg Morphine Sulfate (Morphine) 3 mg IVPUSH Q2H PRN PRN Reason: Pain (severe 7-10) Last Admin: 11/18/18 07:50 Dose: 3 mg Ondansetron HCl (Zofran) 4 mg IVPUSH ONETIME ONE Stop: 11/17/18 13:28 Last Admin: 11/17/18 13:34 Dose: 4 mg - Exam Quality Assessment: Denies: Supplemental Oxygen General: Reports: Alert, Oriented, Cooperative, No Acute Distress HEENT: Reports: Pupils Equal, Pupils Reactive, EOMI, Mucous Membr. Moist/[place] Neck: Reports: Supple, Trachea Midline Lungs: Reports: Clear to Auscultation, Normal Respiratory Effort Cardiovascular: Reports: Regular Rate, Regular Rhythm GI/Abdominal Exam: Normal Bowel Sounds, Soft, Non-Tender, No Distention Back Exam: Reports: Normal Inspection, Full Range of Motion Extremities: Normal Inspection, Normal Range of Motion, No Pedal Edema Skin: Reports: Warm, Dry, Intact Neurological: Reports: No New Focal Deficit Psy/Mental Status: Reports: Alert, Normal Affect, Normal Mood
== END 2018-11-19 11:30 | disposition home or self-care (01) ==
LOC: MW.ED 10:41 → MW.MS 14:50
PROVIDERS: ADMIT Internal Medicine; ATTEND Internal Medicine
DX: G03.9 Meningitis, unspecified (principal)
CPT/HCPCS: 36415; 62270; 71045; 80048; 80053; 80202; 80305; 81003; 82945; 84157; 84443; 85025; 86695; 86696; 86788; 86789; 87040; 87070; 87081; 87205; 87389; 87804; 87880; 89050; 96361; 96365; 96366; 96367; 96375; 99284; A9270; G0480; J0133; J0696; J1170; J1885; J2270; J2405; J3370; J7040; J7050; 96376; G0378

== ENCOUNTER 2023-11-10 08:40 | Day surgery (SDC) | payer BC, OTHER ==
[2023-11-10] MEDS ORDERED: Lidocaine 2% 5 ML SDV ONE (09:02)
[2023-11-10] MEDS ORDERED: propofoL 50 ML ONE (09:02)
[2023-11-10] MEDS ORDERED: fentaNYL 100 MCG/2 ML SDV ONE (09:03)
[2023-11-10] MEDS: Lactated Ringers 1,000 ML IV SCH (09:06)
[2023-11-10] MEDS ORDERED: Ondansetron 4 MG/2 ML SDV ONE (09:45)
[2023-11-10 10:53] VITALS: BP 96/55; PULSE 54
== END 2023-11-10 11:05 | disposition home or self-care (01) ==
LOC: MW.SDS 08:40
PROVIDERS: ATTEND Surgery
DX: K29.50 Unspecified chronic gastritis without bleeding (principal); K20.0 Eosinophilic esophagitis; K21.9 Gastro-esophageal reflux disease without esophagitis
CPT/HCPCS: 43239; 45380; J2405; J2704; J3010; J7120; 00813; J3490